=== PATIENT | female | born 1980 | race Two or more races ===

== ENCOUNTER 2025-01-27 17:10 | Emergency (ER) | payer SELFPAY ==
[2025-01-27 17:10] VITALS: BMI 41.5
--- NOTE | 2025-01-27 17:13 | EKG_ITS ---
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
--- NOTE | 2025-01-27 17:27 | XR_ITS ---
Examination: PA lateral chest 2 views TECHNIQUE: Upright PA and lateral chest 2 views Standing time: January 27, 2025 1803 hours INDICATIONS: Chest pain today. FINDINGS: Normal heart size Pectus deformity No lumbar pneumonia or pulmonary edema IMPRESSION: No lobar pneumonia or pulmonary edema
--- NOTE | 2025-01-27 17:27 | PD.EDRME ---
Rapid Medical Screening Exam RME Arrival date/time: 01/27/25 17:10 This is a 44-year-old female that comes into the emergency room with complaints of chest pain. Patient states she is also having dizziness especially when she walks around. Patient states the chest pain starts in her lower chest radiates up her chest and radiates to her back. Patient denies any nausea vomiting. Patient reports history of carpal tunnel surgery and reproductive surgery. I have greeted and performed a focused initial assessment of this patient. Initial appropriate labs ordered at this time. A comprehensive ED assessment and evaluation of the patient and analysis of all test and completion of medical decision making process will be conducted by additional ED provider. Chief Complaint: Chest Pain Time Seen by Provider: 01/27/25 17:15
[2025-01-27 17:34] VITALS: BP 129/88; PULSE 94; RESP 16; TEMP 37; O2SAT 99
[2025-01-27 18:05] LABS: Basophils % (Auto) 0 % (0-2.5); Eosinophils # (Auto) 0.5 Thou/mm3 (0.0-0.5); Eosinophils % (Auto) 7 % (0-10); Hematocrit 40.7 % (36.0-46.0); Hemoglobin 13.8 g/dL (12.0-16.0); Immature Granulocytes % (Auto) 0 % (0-0); Immature Granulocytes Auto 0.02 Thou/mm3 (0.00-0.00); Lymphocytes # (Auto) 1.8 Thou/mm3 (1.0-4.8); Lymphocytes % (Auto) 24 % (10-50); Mean Corpuscular HGB Conc 33.9 g/dl (31.0-37.0); Mean Corpuscular Hemoglobin 26.5 pg (25.0-35.0); Mean Corpuscular Volume 78 fL (80-100); Monocytes # (Auto) 0.6 Thou/mm3 (0.0-0.8); Monocytes % (Auto) 8 % (0-12); Neutrophils # (Auto) 4.5 Thou/mm3 (1.8-7.7); Neutrophils % (Auto) 61 % (37-80); Nucleated Red Blood Cell % 0 /100 WBC (0); Platelet Count 295 Thou/mm3 (140-440); RDW Standard Deviation 42.2 fL (36.4-46.3); Red Blood Count 5.21 Miln/mm3 (4.00-5.20); White Blood Count 7.4 Thou/mm3 (3.6-11.0)
[2025-01-27 18:24] LABS: Alanine Aminotransferase 22 U/L (10-49); Albumin, Serum 4.4 gm/dL (3.5-5.0); Albumin/Globulin Ratio 1.6 (1.2-2.2); Alkaline Phosphatase 64 U/L (46-116); Anion Gap 9 (7-16); Aspartate Amino Transferase 19 U/L (0-34); BUN/Creatinine Ratio 11 Ratio (12-20); Bilirubin,Total 0.6 mg/dL (0.3-1.2); Blood Urea Nitrogen 8 mg/dL (9-23); Calcium 9.3 mg/dL (8.3-10.6); Calcium (Corrected) 9.3 mg/dL (8.5-10.1); Carbon Dioxide 26.3 mMol/L (20.0-31.0); Chloride 108 mMol/L (98-107); Creatinine (Component) 0.7 mg/dL (0.6-1.3); Estimated Creatinine Clearance 113.4 mL/min (>60); Globulin 2.8 gm/dL (2.3-3.5); Glucose 127 mg/dL (74-106); Lipase 35 U/L (12-53); Osmolality,Calculated 285 (275-295); Potassium 3.3 mMol/L (3.4-5.1); Sodium 143 mMol/L (136-145); Total Protein 7.2 gm/dL (5.7-8.2); Troponin I < 0.002 ng/mL (0.0-0.045); eGFR > 60 See Note
[2025-01-27] MEDS: MECLIZINE HCL 25 MG TABLET PO (18:24)
[2025-01-27] MEDS: IBUPROFEN TAB 400 MG TABLET 800 MG PO (18:24)
[2025-01-27 18:37] LABS: Collection Type, Urine Voided; RBC,Urine 0 /hpf (0-3); WBC,Urine 0 /hpf (0-5)
[2025-01-27 18:54] LABS: Bacteria,Urine Rare; Bilirubin,Urine Negative (Negative); Blood,Urine Negative (Negative); Clarity,Urine Clear (Clear/Hazy); Color,Urine Yellow (Lt Yel-Yel); Culture Indicated,Urine Not Indicated; Glucose, Urine Negative (Negative); Ketones,Urine Trace (Negative); Leukocyte Esterase,Urine Negative (Negative); Nitrite,Urine Negative (Negative); Protein,Urine 1+ (Neg - Trace); Specific Gravity,Urine 1.026 (1.001-1.035); Squamous Epithelial Cell,Urine 7 /hpf (0-5); Urobilinogen,Urine Negative mg/dL (0.0-1.0)
--- NOTE | 2025-01-27 19:48 | PD.EDCHEST ---
ED Chest Pain RME/HPI General Chief Complaint: Chest Pain Stated Complaint: RIGHT CHEST & BACK PAIN Time Seen by Provider: 01/27/25 17:15 Arrival date/time: 01/27/25 17:10 RME / HPI RME / HPI narrative: 44-year-old female that comes into the emergency room with complaints of chest pain. Patient states she is also having dizziness especially when she walks around. Patient states the chest pain starts in her lower chest radiates up her chest and radiates to her back. Is been ongoing for the last 2 days. Patient denies any nausea vomiting. Patient reports history of carpal tunnel surgery and reproductive surgery. Related Data Home Medications ?Medication ?Instructions ?Recorded ?Confirmed Multivitamin with Minerals 1 ea PO QDAY #0 tabs 08/24/17 (Multiple Vitamin) Previous Rx's ?Medication ?Instructions ?Recorded Hydrocodone/Acetaminophen * (NORCO 1 tab PO Q4H PRN pain #30 tabs 08/25/17 5/325 *) ibuprofen 800 mg tablet 800 mg PO Q8H PRN pain #30 tabs 01/27/25 pantoprazole 40 mg tablet,delayed 40 mg PO QDAY #20 tabs 01/27/25 release (Protonix) Allergies Allergy/AdvReac Type Severity Reaction Status Date / Time No Known Allergies Allergy Unknown Uncoded 01/27/25 17:13 Review of Systems Review of Systems Narrative Review of Systems: Review of system reviewed and within normal limits except mentioned in HPI ED Exam Narrative Physical exam: VITAL SIGNS: Reviewed. GENERAL APPEARANCE: Alert and interactive, follows commands, no acute distress, HEAD AND FACE: Non-traumatic. ENT: PERRL, pink conjunctivitis, eyelid no trauma, Mucous membrane moist. NECK: Supple, nontender, no nuchal rigidity. CHEST: Anterior chest tenderness, no crepitus, no paradoxical movement, no retractions. LUNGS: Clear, well ventilated, symmetric, no rales, no wheezing, no ronchi, no stridor, good breath sounds bilaterally. HEART: Regular rate, regular rhythm, no murmur, no gallops. ABDOMEN: Soft, positive bowel sounds, nondistended, no guarding, nontender, no rebound, no masses, RECTAL: Deferred. GENITAL: Deferred. NEUROLOGICAL: Gross motor function intact sensory function intact, Appropriate for age. MUSCULOSKELETAL: low back nontender, full range of motion. EXTREMITIES: Nontender, full range of motion. SKIN: Color pink, dry, no rash, no lacerations, no abrasions, no contusions. LYMPHATICS: Deferred. Course Quality Measures none Orders Category Date Time Status EKG (ED ONLY) *Do not use* NOW Care 01/27/25 17:13 Completed EKG (ED Only) Stat Exams 01/27/25 17:13 Draft XR chest 2V Stat Exams 01/27/25 17:27 Completed CBC Stat Lab 01/27/25 17:46 Completed Comprehensive Metabolic Panel Stat Lab 01/27/25 17:46 Completed Lipase Stat Lab 01/27/25 17:46 Completed Troponin I Stat Lab 01/27/25 17:46 Completed Urinalysis, C/S if Indicated Stat Lab 01/27/25 18:25 Completed Ibuprofen Tab [Motrin Tab] Med 01/27/25 18:15 Discontinued 800 mg PO X1 ONE Ketorolac Inj [Toradol Inj] Med 01/27/25 19:45 Discontinued 30 mg IM X1 ONE Meclizine HCl [Antivert] Med 01/27/25 17:27 Discontinued 25 mg PO X1 ONE mg Hyd/Al Hyd/Malik Susp [Maalox Susp] Med 01/27/25 19:45 Discontinued 30 ml PO X1 ONE Vital Signs Vital signs: Vital Signs Temperature 98.6 F 01/27/25 17:34 Pulse Rate 94 01/27/25 17:34 Respiratory Rate 16 01/27/25 17:34 Blood Pressure 129/88 H 01/27/25 17:34 Pulse Oximetry (%) 99 01/27/25 17:34 Oxygen Delivery Method Room Air 01/27/25 17:34 Chest Pain MDM Narrative MDM Narrative:: 44-year-old female that comes into the emergency room with complaints of chest pain. Patient states she is also having dizziness especially when she walks around. Patient states the chest pain starts in her lower chest radiates up her chest and radiates to her back. Is been ongoing for the last 2 days. Patient denies any nausea vomiting. Patient reports history of carpal tunnel surgery and reproductive surgery. Patient's cardiac workup all came back normal including normal troponin chest x-ray also came back unremarkable EKG showed normal sinus rhythm ventricular rate of 95 bpm, no ST segment elevation or depression noted. Results discussed with the patient and family. Patient was given Toradol and Maalox with significant improvement of symptoms. Patient data External records reviewed:: None Clinical information provided by:: patient Social determinants that could affect healthcare access:: none Patient has the following chronic illnesses:: None How is presenting disease/condition affected by chronic disease/condition?: no chronic disease Evaluation data The following diagnostics were reviewed and interpreted by me:: lab results, radiology exam(s) and EKG tracing(s) Lab and/or radiology exams considered but not ordered:: None Interpretation Summary: See results MDM Medications / Prescriptions Medications or Prescriptions considered but not ordered:: None Medication administrations:: Medication Administration History Discontinued Medications Al Hydrox/Mg Hydrox/Simethicone (Mg Hyd/Al Hyd/Malik (Maalox Reg) Susp 30 Ml Udc) 30 ml PO X1 ONE Stop: 01/27/25 19:46 Ibuprofen (Ibuprofen Tab 400 Mg Tablet) 800 mg PO X1 ONE Stop: 01/27/25 18:16 Last Admin: 01/27/25 18:24 Dose: 800 mg Documented By: SYLVESTER Ketorolac Tromethamine (Ketorolac Inj 60 Mg/2 Ml Vial) 30 mg IM X1 ONE Stop: 01/27/25 19:46 Meclizine HCl (Meclizine Hcl 25 Mg Tablet) 25 mg PO X1 ONE Stop: 01/27/25 17:28 Last Admin: 01/27/25 18:24 Dose: 25 mg Documented By: SYLVESTER Meclizine, Toradol Maalox and Motrin Consultations Consultation(s) initiated? (list below): No Diagnosis Chest Pain Differential Diagnosis: pneumothorax and chest pain Most likely diagnosis given after review of the tests above:: GERD causing chest pain Admission Indicated Admission indicated?: not indicated Admission Request Was there a request for admission?: No Disposition Plan Disposition Plan: Discharge Discharge Attestation Discharge Attestation: The patient and all family members were given an opportunity to ask questions and understood the discharge instructions. Discharge instructions specifically effects, indications for sooner follow up or return to the emergency department, and the expected course of current diagnosis. Patient condition: Stable Discharge Plan Plan Patient Disposition: HOME (Self Care) Disposition Comment: Stable Prescriptions/Referrals Prescriptions/Med Rec: New pantoprazole [Protonix] 40 mg tablet,delayed release (DR/EC) 40 mg PO QDAY Qty: 20 0RF ibuprofen 800 mg tablet 800 mg PO Q8H PRN (Reason: pain) Qty: 30 0RF No Action Multivitamin with Minerals (Multiple Vitamin) 1 EACH tablet 1 ea PO QDAY Qty: 0 Hydrocodone/Acetaminophen * (NORCO 5/325 *) 1 TAB tablet 1 tab PO Q4H PRN (Reason: pain) Qty: 30 0RF Referrals: No Primary/Family,Physician [Primary Care Provider] - In 1 week Problem List Clinical Impression: Chest pain due to GERD Patient/Caregiver Discharge Instructions Discharge Activity: activity as tolerated Education Materials: GERD Dc Additional Instructions: Thank you for the opportunity for serving you today. You are stable for discharged . You are advised to: Follow-up with your PCP in 1 to 2 days Return to ED for worsening of symptoms Increase oral fluids Take medication as prescribed Print Language: Citizen Of [place] Stand Alone Forms: Ana Award Info., Patient Portal Info Letter
[2025-01-27] MEDS: MG HYD/AL HYD/SIME (Maalox Reg) SUSP 30 ML UDC PO (20:58)
[2025-01-27] MEDS: KETOROLAC INJ 60 MG/2 ML VIAL 30 MG IM (20:58)
== END 2025-01-27 20:03 | disposition home or self-care (01) ==
PROVIDERS: Nurse Practitioner Family; Emergency Provider Emergency Medicine
DX: K21.9 Gastro-esophageal reflux disease without esophagitis (principal); R07.9 Chest pain, unspecified; R94.31 Abnormal electrocardiogram [ECG] [EKG]
CPT/HCPCS: 36415; 71046; 80053; 81001; 83690; 84484; 85025; 93005; 96372; 99283; J1885; A9270

== ENCOUNTER 2025-01-30 11:00 | Emergency (ER) | payer BC, SELFPAY ==
[2025-01-30] VITALS (8 sets, daily range): BP systolic 100–135; BP diastolic 63–78; PULSE 17–127; RESP 17–19; TEMP 36.7–38.4; O2SAT 96–100; BMI 41.5
--- NOTE | 2025-01-30 | XR_ITS ---
MRI abdomen, without contrast. MRCP Date and time of exam: January 30, 2025 1832 hours INDICATIONS: Elevated total bilirubin today with abdominal pain and nausea Technique: Multiple axial and coronal images of the abdomen have been obtained with the Siemens 1.5T MRI scanner. Images obtained included T1 weighted transverse images, T2-weighted transverse images, T2-weighted transverse images fat-suppressed, T2 weighted haste fat suppressed transverse images, T1 weighted images, in and out of phase images, T2-weighted coronal images, breath hold, T2 weighted haze coronal images as well as T2 weighted coronal thick slab images, MRCP. Findings: Gallbladder wall thickening with edema Common hepatic duct 6 mm common bile duct 4 mm no stones Pancreatic duct is not dilated No peripancreatic edema Minimal perinephric stranding Spleen is not enlarged No bowel obstruction No ascites IMPRESSION: Acute acalculus cholecystitis No common hepatic common bile duct stones
--- NOTE | 2025-01-30 11:15 | EDRME_ITS ---
Rapid Medical Screening Exam RME Arrival date/time: 01/30/25 11:00 44-year-old female presents the emergency department for complaint of right- sided abdominal pain patient noted be febrile and tachycardic Chief Complaint: Abdominal Pain Vital signs: Vital Signs Temperature 100.5 F H 01/30/25 11:07 Pulse Rate 127 H 01/30/25 11:07 Respiratory Rate 18 01/30/25 11:07 Blood Pressure 108/71 01/30/25 11:07 Pulse Oximetry (%) 97 01/30/25 11:07 Oxygen Delivery Method Room Air 01/30/25 11:07
[2025-01-30] MEDS: ACETAMINOPHEN 500 MG TABLET 1000 MG PO (11:30)
--- NOTE | 2025-01-30 11:41 | EDNOTE_ITS ---
ED General RME/HPI General Chief complaint: Abdominal Pain Stated complaint: ABD. PAIN AND NAUSEA Time Seen by Provider: 01/30/25 11:31 Arrival date/time: 01/30/25 11:00 CC: Abdominal pain HPI ongoing for the past 2 days the patient states she was seen here diagnosed with GERD sent home, the patient states she had 1 small bowel movement and felt it gets stuck . Since then she has had an right lower quadrant abdominal pain. Patient also was noted to be febrile and tachycardic upon initial assessment. Patient denies chest pain shortness of breath or difficulty breathing. RME / HPI RME / HPI narrative: 01/30/25 11:00 44-year-old female presents the emergency department for complaint of right- sided abdominal pain patient noted be febrile and tachycardic Related Data Home Medications ?Medication ?Instructions ?Recorded ?Confirmed Multivitamin with Minerals 1 ea PO QDAY #0 tabs (Multiple Vitamin) Previous Rx's ?Medication ?Instructions ?Recorded Hydrocodone/Acetaminophen * (NORCO 1 tab PO Q4H PRN pa in #30 tabs 08/25/17 5/325 *) ibuprofen 800 mg tablet 800 mg PO Q8H PRN pain #30 t abs 01/27/25 pantoprazole 40 mg tablet,delayed 40 mg PO QDAY #20 ta bs 01/27/25 release (Protonix) amoxicillin 875 mg-potassium 1 tab PO BID #14 tabs clavulanate 125 mg tablet meloxicam 7.5 mg tablet 7.5 mg PO QDAY #10 tabs 01/03 06/28 Allergies Allergy/AdvReac Type Severity Reaction Status Date / Time No Known Allergies Allergy Unknown Uncoded 01/30/25 11:04 Review of Systems Review of Systems Narrative Review of Systems: GEN: No fever, no chills, no weight loss EYES: No discharge, no visual changes, no pain HEENT: No ear pain, no congestion, no sore throat PULM: No shortness of breath, no cough, no congestion CV: No chest pain, no dyspnea on exertion, no palpitations GI: No nausea, no vomiting, no diarrhea, + pain, no constipation : No frequency, no urgency, no dysuria MUSC/SKEL: No joint pain, no back pain SKIN: No rash PSYCH: No hallucinations, no depression HEME/LYMPH: No easy bleeding or bruising tendencies NEURO: No weakness, no headache Past Medical History Social History SMOKING STATUS: Never smoker ED Exam Narrative Physical exam: [General: Morbidly obese in mild discomfort but not in any acute distress Head normocephalic HEENT: Eyes pupils are PERRLA EOMs are intact mouth pink dry membranes uvula is midline swallow symmetrical phonation is normal although the subsystems of ATTR within acceptable limits Neck is supple nontender no JVD no edema Chest equal chest rise nontender to palpation Respiratory: Clear to auscultation no wheezes crackles or rubs CV: Rate rhythm is regular tachycardic no murmurs rubs or clicks Abdomen is distended secondary to body habitus soft nontender no masses positive bowel sounds all 4 quadrants Back: No CVA tenderness no spinous process tenderness from cervical spine thoracic and lumbar spine Skin: Intact no petechiae rash induration ulceration or crepitus Extremities: Moving all extremity against resistance cap refill less than 2 seconds neurosensory intact Neuro: Awake alert oriented x3 Glascow coma 15 no focal deficits] Course Course Course Narrative: Patient's case discussed with Dr. Uriarte initially wanted MRCP At 2230, patient's case rediscussed with Dr. Uriarte after the MRCP shows no choledocholithiasis. The patient's recheck laboratory results show that she has a mild increase in her WBCs from 8-11.2. The patient has had no fever no increased pain. Transaminases are unchanged T. bili is unchanged at 1.9. This was all discussed with Dr. Uriarte including that MRCP results. He agrees patient can be discharged home on antibiotics and pain medicine to follow-up in his office. Patient is in agreement with this plan Quality Measures none Orders Category Date Time Status Bedside Influenza A&B Antigen Test NOW Care 01/30/25 11:[address] Screening NOW Care 01/30/25 11:14 Active Insert IV NOW Care 01/30/25 11:14 Active MRI Screening NOW Care 01/30/25 16:[address] abdomen pelvis wo con Stat Exams 01/30/25 13:04 Completed MR MRCP Stat Exams 01/30/25 Completed Blood Culture (Lab) Stat Lab 01/30/25 11:53 Received CBC Stat Lab 01/30/25 11:43 Completed CBC Stat Lab 01/30/25 21:13 Completed CMP [Comprehensive Metabolic Panel] Stat Lab 01/30/25 21:14 Completed Comprehensive Metabolic Panel Stat Lab 01/30/25 11:43 Completed HCG Qualitative,Urine Stat Lab 01/30/25 11:14 Completed Lactic Acid [Lactate (Lactic Acid)] Stat Lab 01/30/25 11:43 Completed Lipase Stat Lab 01/30/25 11:43 Completed Procalcitonin Stat Lab 01/30/25 11:43 Completed UA, C/S IF [Urinalysis, C/S if Indicated] Stat Lab 01/30/25 11:14 Completed Urine Culture Stat Lab 01/30/25 11:14 Received Acetaminophen Tab [Tylenol ES Tab] Med 01/30/25 11:14 Discontinued 1,000 mg PO X1 ONE Morphine Inj Med 01/30/25 15:25 Discontinued 4 mg IVP X1 ONE Ondansetron Inj [Zofran Inj] Med 01/30/25 15:25 Discontinued 4 mg IV X1 ONE Piper/Tazo 3.375 gm Premix [Zosyn] Med 01/30/25 16:03 Discontinued 3.375 gm in 50 ml IV X1 Sodium Chloride 0.9% 1000 ml [Ns] 1,000 ml Med 01/30/25 17:34 Active IV 100 mls/hr Sodium Chloride 0.9% 1000 ml [Ns] 1,000 ml Med 01/30/25 11:14 Discontinued IV 999 mls/hr oxyCODONE/APAP 5/325 [Percocet 5/325] Med 01/30/25 22:20 Once 2 tab PO X1 ONE Vital Signs Vital signs: Vital Signs Temperature 100.5 F H 01/30/25 11:07 Pulse Rate 127 H 01/30/25 11:07 Respiratory Rate 18 01/30/25 11:07 Blood Pressure 108/71 01/30/25 11:07 Pulse Oximetry (%) 97 01/30/25 11:07 Oxygen Delivery Method Room Air 01/30/25 11:07 Discharge Plan Plan Patient Disposition: HOME (Self Care) Patient condition on transfer: Stable Prescriptions/Referrals Prescriptions/Med Rec: New amoxicillin-pot clavulanate 875-125 mg tablet 1 tab PO BID Qty: 14 0RF meloxicam 7.5 mg tablet 7.5 mg PO QDAY Qty: 10 0RF No Action Multivitamin with Minerals (Multiple Vitamin) 1 EACH tablet 1 ea PO QDAY Qty: 0 Hydrocodone/Acetaminophen * (NORCO 5/325 *) 1 TAB tablet 1 tab PO Q4H PRN (Reason: pain) Qty: 30 0RF pantoprazole [Protonix] 40 mg tablet,delayed release (DR/EC) 40 mg PO QDAY Qty: 20 0RF ibuprofen 800 mg tablet 800 mg PO Q8H PRN (Reason: pain) Qty: 30 0RF Referrals: Matthieu Uriarte MD [Physician] - In 1 week No Primary/Family,Physician [Primary Care Provider] - In 1 week Problem List Clinical Impression: Acalculous cholecystitis Patient/Caregiver Discharge Instructions Other Activity Instructions:: Take the medications as prescribed, stick to a bland diet follow-up with the surgeon listed above call his office tomorrow for an appointment. If there is a worsening of symptoms in spite of the medications return the emergency room immediately for further evaluation. Education Materials: ED Diet, [place] (Adult), ED Cholecystitis, Confirmed Print Language: Kyr[place] Stand Alone Forms: Ana Award Info., Patient Portal Info Letter, Work/School Release PA/[employer] RESIDENT Supervising Physician PA/[employer] AND MAXILLOFACIAL SURGERY RESIDENT Supervising Physician: Taj Evans ENJorgito MDM Patient Acuity High Acuity (complete MDM) Clinical Information Provided by: patient Medical Records reviewed [facility] Meds/Rx considered, not ordered None Labs/Rad/Tests considered, not ordered None Medication Administration(s) Medication Administration History Sodium Chloride (Ns) 1,000 mls @ 100 mls/hr IV .Q10H MARCELLUS Stop: 03/01/25 17:33 Last Admin: 01/30/25 19:25 Dose: 100 mls/hr Documented By: SF Discontinued Medications Acetaminophen (Acetaminophen 500 Mg Tablet) 1,000 mg PO X1 ONE Stop: 01/30/25 11:15 Last Admin: 01/30/25 11:30 Dose: 1,000 mg Documented By: KIMBERLY Sodium Chloride (Ns) 1,000 mls @ 999 mls/hr IV .Q1H1M ONE Stop: 01/30/25 12:14 Last Infusion: 01/30/25 12:58 Dose: Infused Documented By: Admin: 01/30/25 11:56 Dose: 999 mls/hr Documented By: KIMBERLY Piperacillin/Tazobactam/Dextrose (Zosyn) 3.375 gm in 50 mls @ 100 mls/hr IV X1 ONE Stop: 01/30/25 16:32 Last Infusion: 01/30/25 17:05 Dose: Infused Documented By: Admin: 01/30/25 16:30 Dose: 100 mls/hr Documented By: SANDEE Morphine Sulfate (Morphine Sulf Inj 10 Mg/Ml Vial) 4 mg IVP X1 ONE Stop: 01/30/25 15:26 Last Admin: 01/30/25 15:40 Dose: 4 mg Documented By: KIMBERLY Ondansetron HCl (Ondansetron Inj 2 Mg/Ml Inj 2 Ml) 4 mg IV X1 ONE; Protocol Stop: 01/30/25 15:26 Last Admin: 01/30/25 15:40 Dose: 4 mg Documented By: KIMBERLY
[2025-01-30] MEDS: SODIUM CHLORIDE 0.9% 1000 ML 1,000 ML 999 ML IV (11:56)
[2025-01-30 12:02] LABS: Lactate (Lactic Acid) 1.5 mMol/L (0.4-2.0)
[2025-01-30 12:06] LABS: Basophils % (Auto) 0 % (0-2.5); Eosinophils % (Auto) 0 % (0-10); Hematocrit 37.3 % (36.0-46.0); Hemoglobin 12.8 g/dL (12.0-16.0); Immature Granulocytes % (Auto) 0 % (0-0); Immature Granulocytes Auto 0.03 Thou/mm3 (0.00-0.00); Lymphocytes # (Auto) 0.5 Thou/mm3 (1.0-4.8); Lymphocytes % (Auto) 6 % (10-50); Mean Corpuscular HGB Conc 34.3 g/dl (31.0-37.0); Mean Corpuscular Hemoglobin 26.6 pg (25.0-35.0); Mean Corpuscular Volume 78 fL (80-100); Monocytes # (Auto) 0.2 Thou/mm3 (0.0-0.8); Monocytes % (Auto) 2 % (0-12); Neutrophils # (Auto) 7.5 Thou/mm3 (1.8-7.7); Neutrophils % (Auto) 92 % (37-80); Nucleated Red Blood Cell % 0 /100 WBC (0); Platelet Count 258 Thou/mm3 (140-440); RDW Standard Deviation 40.9 fL (36.4-46.3); Red Blood Count 4.81 Miln/mm3 (4.00-5.20); White Blood Count 8.2 Thou/mm3 (3.6-11.0)
[2025-01-30 12:40] LABS: Alanine Aminotransferase 26 U/L (10-49); Albumin, Serum 4.4 gm/dL (3.5-5.0); Albumin/Globulin Ratio 1.6 (1.2-2.2); Alkaline Phosphatase 108 U/L (46-116); Anion Gap 11 (7-16); Aspartate Amino Transferase 23 U/L (0-34); BUN/Creatinine Ratio 13 Ratio (12-20); Bilirubin,Total 1.9 mg/dL (0.3-1.2); Blood Urea Nitrogen 10 mg/dL (9-23); Carbon Dioxide 23.9 mMol/L (20.0-31.0); Chloride 101 mMol/L (98-107); Creatinine (Component) 0.8 mg/dL (0.6-1.3); Estimated Creatinine Clearance 99.2 mL/min (>60); Globulin 2.8 gm/dL (2.3-3.5); Glucose 112 mg/dL (74-106); Lipase 25 U/L (12-53); Osmolality,Calculated 271 (275-295); Potassium 3.2 mMol/L (3.4-5.1); Sodium 136 mMol/L (136-145); Total Protein 7.2 gm/dL (5.7-8.2); eGFR > 60 See Note
[2025-01-30 13:01] LABS: Procalcitonin 0.39 ng/ml (0.0-0.49)
--- NOTE | 2025-01-30 13:04 | XR_ITS ---
Examination: CT abdomen and pelvis without contrast. Coronal 3-D reconstructions. Sagittal 2-D reconstructions. Date and time of exam:January 30, 2025 1541 hours INDICATIONS: Lower abdominal pain and fever onset today CTDI: vol (mGy): 15.2 DLP: (mGycm): 904 Technique: Axial images of the abdomen have been obtained, 3 mm slice thickness Intravenous contrast material has not been administered. Low dose protocols were performed. One or more of the following dose reduction techniques were used; automated exposure control, adjustment of the mA and/or KV according to patient size, use of iterative reconstruction technique. Findings: Atelectasis in the lower lung zones Liver is mildly irregular in contour Abnormal gallbladder, marked wall thickening pericholecystic inflammatory change and hyperdensity in the gallbladder Spleen is not enlarged No pancreatic mass Renal or ureteral calculi Aorta normal size Normal appendix No bowel obstruction Mildly enlarged fundus of uterus Urinary bladder intact IMPRESSION: Acute cholecystitis, recommend hepatobiliary sonography follow-up
[2025-01-30 13:42] LABS: Bilirubin,Urine Negative (Negative); Blood,Urine Negative (Negative); Collection Type, Urine Clean Catch; Color,Urine Yellow (Lt Yel-Yel); Glucose, Urine Negative (Negative); HCG Qualitative,Urine Negative; Hyaline Casts,Urine < 1 /hpf (0-1); Ketones,Urine 2+ (Negative); Leukocyte Esterase,Urine Positive (Negative); Nitrite,Urine Negative (Negative); Protein,Urine Trace (Neg - Trace); RBC,Urine 0 /hpf (0-3); Specific Gravity,Urine 1.014 (1.001-1.035); Squamous Epithelial Cell,Urine 0 /hpf (0-5); Urobilinogen,Urine Negative mg/dL (0.0-1.0); WBC,Urine 0 /hpf (0-5)
[2025-01-30 13:44] LABS: Clarity,Urine Hazy (Clear/Hazy); Culture Indicated,Urine Yes
[2025-01-30] MEDS: MORPHINE SULF INJ 10 MG/ML VIAL 4 MG IVP (15:40)
[2025-01-30] MEDS: ONDANSETRON INJ 2 MG/ML INJ 2 ML 4 MG IV (15:40)
[2025-01-30] MEDS: PIPER/TAZO 3.375 GM PREMIX 3.375 GM/50 ML BAG IV (16:30)
[2025-01-30] MEDS: SODIUM CHLORIDE 0.9% 1000 ML 1,000 ML 100 ML IV (19:25)
[2025-01-30 21:33] LABS: Basophils % (Auto) 0 % (0-2.5); Eosinophils # (Auto) 0.1 Thou/mm3 (0.0-0.5); Eosinophils % (Auto) 1 % (0-10); Hematocrit 33.9 % (36.0-46.0); Hemoglobin 11.5 g/dL (12.0-16.0); Immature Granulocytes % (Auto) 0 % (0-0); Immature Granulocytes Auto 0.04 Thou/mm3 (0.00-0.00); Lymphocytes # (Auto) 1.1 Thou/mm3 (1.0-4.8); Lymphocytes % (Auto) 9 % (10-50); Mean Corpuscular HGB Conc 33.9 g/dl (31.0-37.0); Mean Corpuscular Hemoglobin 26.6 pg (25.0-35.0); Mean Corpuscular Volume 78 fL (80-100); Monocytes # (Auto) 1.2 Thou/mm3 (0.0-0.8); Monocytes % (Auto) 10 % (0-12); Neutrophils # (Auto) 9.1 Thou/mm3 (1.8-7.7); Neutrophils % (Auto) 79 % (37-80); Nucleated Red Blood Cell % 0 /100 WBC (0); Platelet Count 238 Thou/mm3 (140-440); RDW Standard Deviation 41.5 fL (36.4-46.3); Red Blood Count 4.33 Miln/mm3 (4.00-5.20); White Blood Count 11.5 Thou/mm3 (3.6-11.0)
[2025-01-30 21:48] LABS: Alanine Aminotransferase 30 U/L (10-49); Albumin, Serum 3.8 gm/dL (3.5-5.0); Albumin/Globulin Ratio 1.5 (1.2-2.2); Alkaline Phosphatase 109 U/L (46-116); Anion Gap 8 (7-16); Aspartate Amino Transferase 35 U/L (0-34); BUN/Creatinine Ratio 10 Ratio (12-20); Bilirubin,Total 1.9 mg/dL (0.3-1.2); Blood Urea Nitrogen 7 mg/dL (9-23); Calcium 7.9 mg/dL (8.3-10.6); Calcium (Corrected) 8.1 mg/dL (8.5-10.1); Chloride 102 mMol/L (98-107); Creatinine (Component) 0.7 mg/dL (0.6-1.3); Estimated Creatinine Clearance 113.4 mL/min (>60); Globulin 2.6 gm/dL (2.3-3.5); Glucose 87 mg/dL (74-106); Osmolality,Calculated 265 (275-295); Potassium 3.6 mMol/L (3.4-5.1); Sodium 134 mMol/L (136-145); Total Protein 6.4 gm/dL (5.7-8.2); eGFR > 60 See Note
[2025-01-30] MEDS: oxyCODONE/APAP 5/325 TABLET 2 TAB PO (22:37)
== END 2025-01-30 22:43 | disposition home or self-care (01) ==
PROVIDERS: Nurse Practitioner Primary Care; Registered Nurse General Practice; Emergency Provider Emergency Medicine
DX: K81.9 Cholecystitis, unspecified (principal); K21.9 Gastro-esophageal reflux disease without esophagitis
CPT/HCPCS: 36415; 74176; 80053; 81001; 81025; 83605; 83690; 84145; 85025; 87040; 87086; 87400; 96361; 96365; 99284; J2270; J2405; J2543; J7030; S8037; 74181; A9270

== ENCOUNTER 2025-02-02 14:41 | Inpatient (IN) | payer BC, SELFPAY ==
[2025-02-02] VITALS (7 sets, daily range): BP systolic 96–114; BP diastolic 65–79; PULSE 78–130; RESP 16–20; TEMP 36.8–38.1; O2SAT 95–99; BMI 35.2; BMI 41.5
--- NOTE | 2025-02-02 15:03 | XR_ITS ---
Examination: Abdomen sonogram, Limited Date and time of exam: February 02, 2025 1548 hours INDICATIONS: Abdominal pain and nausea Technique: Real-time samuels scale transabdominal sonographic images of the upper abdomen obtained. Findings: Cholelithiasis Gallbladder wall 0.8 cm with edema Common bile duct 0.6 cm Pancreatic head 2.2 cm Liver 18.4 cm fatty infiltration no focal liver lesions Normal hepatopedal portal venous flow Patent IVC IMPRESSION: Acute calculus cholecystitis, consider HIDA scan or MRCP follow-up
--- NOTE | 2025-02-02 15:04 | PD.EDRME ---
Rapid Medical Screening Exam RME Arrival date/time: 02/02/25 14:41 44-year-old female with a history of gallstones presents to the emergency room with a chief complaint of 10 out of 10 right upper quadrant abdominal pain and tenderness, fevers, weakness and vomiting x 2 days I have greeted and performed a focused initial assessment of this patient. A comprehensive ED assessment and evaluation of the patient, analysis of all test results, and completion of the medical decision making process will be conducted by additional ED providers. Chief Complaint: Abdominal Pain Time Seen by Provider: 02/02/25 14:48 Vital signs: Vital Signs Temperature 100.6 F H 02/02/25 14:54 Pulse Rate 122 H 02/02/25 14:54 Respiratory Rate 18 02/02/25 14:54 Blood Pressure 114/79 02/02/25 14:54 Pulse Oximetry (%) 99 02/02/25 14:54 Oxygen Delivery Method Room Air 02/02/25 14:54 Vital signs reviewed by provider: Yes
[2025-02-02] MEDS: HYDROcodone/APAP 5/325 TABLET 1 TAB PO (15:07)
[2025-02-02] MEDS: ONDANSETRON ODT 4 MG TABRAP PO (15:08)
[2025-02-02] MEDS: IBUPROFEN TAB 600 MG TABLET PO (15:15)
[2025-02-02 15:30] LABS: Lactate (Lactic Acid) 1.2 mMol/L (0.4-2.0)
[2025-02-02 15:33] LABS: Basophils % (Auto) 0 % (0-2.5); Eosinophils # (Auto) 0.1 Thou/mm3 (0.0-0.5); Eosinophils % (Auto) 1 % (0-10); Immature Granulocytes % (Auto) 0 % (0-0); Immature Granulocytes Auto 0.06 Thou/mm3 (0.00-0.00); Lymphocytes # (Auto) 1.6 Thou/mm3 (1.0-4.8); Lymphocytes % (Auto) 11 % (10-50); Mean Corpuscular HGB Conc 35.3 g/dl (31.0-37.0); Mean Corpuscular Hemoglobin 26.4 pg (25.0-35.0); Mean Corpuscular Volume 75 fL (80-100); Monocytes # (Auto) 1.7 Thou/mm3 (0.0-0.8); Monocytes % (Auto) 12 % (0-12); Neutrophils # (Auto) 10.5 Thou/mm3 (1.8-7.7); Neutrophils % (Auto) 76 % (37-80); Nucleated Red Blood Cell % 0 /100 WBC (0); Platelet Count 358 Thou/mm3 (140-440); RDW Standard Deviation 39.2 fL (36.4-46.3); Red Blood Count 4.54 Miln/mm3 (4.00-5.20); White Blood Count 13.9 Thou/mm3 (3.6-11.0)
[2025-02-02 15:52] LABS: Collection Type, Urine Clean Catch
[2025-02-02 15:57] LABS: HCG Qualitative,Urine Negative
[2025-02-02 15:59] LABS: Alanine Aminotransferase 23 U/L (10-49); Albumin/Globulin Ratio 1.4 (1.2-2.2); Alkaline Phosphatase 195 U/L (46-116); Anion Gap 12 (7-16); Aspartate Amino Transferase 17 U/L (0-34); BUN/Creatinine Ratio 14 Ratio (12-20); Bilirubin,Total 0.9 mg/dL (0.3-1.2); Blood Urea Nitrogen 10 mg/dL (9-23); Calcium 8.3 mg/dL (8.3-10.6); Calcium (Corrected) 8.3 mg/dL (8.5-10.1); Carbon Dioxide 25.5 mMol/L (20.0-31.0); Chloride 99 mMol/L (98-107); Creatinine (Component) 0.7 mg/dL (0.6-1.3); Estimated Creatinine Clearance 120.1 mL/min (>60); Globulin 2.9 gm/dL (2.3-3.5); Glucose 98 mg/dL (74-106); Lipase 30 U/L (12-53); Osmolality,Calculated 270 (275-295); Potassium 3.2 mMol/L (3.4-5.1); Procalcitonin 2.46 ng/ml (0.0-0.49); Sodium 136 mMol/L (136-145); Total Protein 6.9 gm/dL (5.7-8.2); eGFR > 60 See Note
[2025-02-02 16:00] LABS: Bacteria,Urine 1+; Bilirubin,Urine 1+ (Negative); Blood,Urine 3+ (Negative); Color,Urine Orange (Lt Yel-Yel); Glucose, Urine Negative (Negative); Ketones,Urine 4+ (Negative); Leukocyte Esterase,Urine Positive (Negative); Nitrite,Urine Negative (Negative); Protein,Urine 1+ (Neg - Trace); RBC,Urine 2748 /hpf (0-3); Specific Gravity,Urine 1.025 (1.001-1.035); Squamous Epithelial Cell,Urine 3 /hpf (0-5); WBC,Urine 255 /hpf (0-5)
[2025-02-02 16:02] LABS: Clarity,Urine Cloudy (Clear/Hazy)
--- NOTE | 2025-02-02 16:33 | PD.EDABDPN ---
ED Abdominal Pain RME/HPI General Chief Complaint: Abdominal Pain Stated complaint: GALLSTONE PAIN, DIZZINESS Time seen by provider: 02/02/25 14:48 Arrival date/time: 02/02/25 14:41 Limitations: no limitations RME / HPI RME / HPI narrative: 02/02/25 14:41 44-year-old female with a history of gallstones presents to the emergency room with a chief complaint of 10 out of 10 right upper quadrant abdominal pain and tenderness, fevers, weakness and vomiting x 2 days I have greeted and performed a focused initial assessment of this patient. A comprehensive ED assessment and evaluation of the patient, analysis of all test results, and completion of the medical decision making process will be conducted by additional ED providers. DR. TENA MAIN ED EVALUATION: 44 year old female presents to the ED for persistent abdominal pain and fever. She was evaluated here three days ago, where an MRCP and CT confirmed a diagnosis of acalculous cholecystitis. She was discharged home with oral antibiotics. Despite treatment, she reports ongoing abdominal pain and fevers with no improvement. Accompanied by nausea and vomiting. She denies any modifying factors. She has no additional complaints. Related Data Home Medications ?Medication ?Instructions ?Recorded ?Confirmed Multivitamin with Minerals 1 ea PO QDAY #0 tabs 08/24/17 (Multiple Vitamin) Previous Rx's ?Medication ?Instructions ?Recorded Hydrocodone/Acetaminophen * (NORCO 1 tab PO Q4H PRN pain #30 tabs 08/25/17 5/325 *) ibuprofen 800 mg tablet 800 mg PO Q8H PRN pain #30 tabs 01/27/25 pantoprazole 40 mg tablet,delayed 40 mg PO QDAY #20 tabs 01/27/25 release (Protonix) amoxicillin 875 mg-potassium 1 tab PO BID #14 tabs 01/30/25 clavulanate 125 mg tablet meloxicam 7.5 mg tablet 7.5 mg PO QDAY #10 tabs 01/30/25 Allergies Allergy/AdvReac Type Severity Reaction Status Date / Time No Known Allergies Allergy Unknown Uncoded 02/02/25 14:43 Review of Systems Review of Systems Systems Reviewed: All systems reviewed, normal except as documented Past Medical History Past Medical History CARDIAC: Positive Coronary Artery Disease; Negative Cardiac Disorders or Congestive Heart Failure RESPIRATORY: Negative Chronic Obstructive Pulmonary Disease (COPD) or Asthma GENITOURINARY: Negative Renal Disease ENDOCRINE: Negative Diabetes Mellitus Type 1 or Diabetes Mellitus Type 2 HEMATOLOGIC: Negative Sickle Cell Disease Surgical History SURGICAL: Positive Open Heart Surgery (X1), Coronary Artery Bypass Graft (X1) and Coronary Stent (X6) Social History SMOKING STATUS: Never smoker ED Exam General Limitations: Present no limitations General appearance: Present alert and in no apparent distress Head Head exam: Present atraumatic, normocephalic and normal inspection Eye Eye exam: Present normal appearance, PERRL and EOMI ENT ENT exam: Present normal exam, normal oropharynx and mucous membranes moist Neck Neck exam: Present normal inspection, full ROM and trachea midline Chest Chest inspection: Present normal inspection and symmetric chest wall rise Respiratory Respiratory exam: Present normal lung sounds bilaterally Cardiovascular Cardiovascular exam: Present regular rate, normal rhythm and normal heart sounds Abdominal Exam Abdominal exam: Present soft, tenderness (mild right upper quadrant tenderness ) and normal bowel sounds Extremities Exam Extremities exam: Present normal inspection and full ROM Back Exam Back exam: Present normal inspection and full ROM Neurological Exam Neurological exam: Present alert, oriented X3 and CN II-XII intact Psychiatric Psychiatric exam: Present normal affect and normal mood Skin Skin exam: Present warm, dry, intact and normal color Course Quality Measures none Orders Category Date Time Status IV [Insert IV] NOW Care 02/02/25 16:30 Active US gall bladder Stat Exams 02/02/25 15:03 Completed Blood Culture (Lab) Stat Lab 02/02/25 15:10 Received CBC Stat Lab 02/02/25 15:17 Completed CMP [Comprehensive Metabolic Panel] Stat Lab 02/02/25 15:17 Completed HCG Qualitative,Urine Stat Lab 02/02/25 15:42 Completed Lactate (Lactic Acid) Stat Lab 02/02/25 15:17 Completed Lipase Stat Lab 02/02/25 15:17 Completed Procalcitonin Stat Lab 02/02/25 15:17 Completed UA [Urinalysis] Stat Lab 02/02/25 15:42 Completed Urine Culture Stat Lab 02/02/25 15:42 Received HYDROcodone*/APAP 5/325 [Fowler 5/325] Med 02/02/25 15:03 Discontinued 1 tab PO X1 ONE HYDROmorphone INJ [Dilaudid Inj] Med 02/02/25 16:30 Discontinued 1 mg IVP X1 ONE Ibuprofen Tab [Motrin Tab] Med 02/02/25 15:08 Discontinued 600 mg PO X1 ONE Ondansetron Inj [Zofran Inj] Med 02/02/25 16:30 Discontinued 4 mg IV X1 ONE Ondansetron Odt [Zofran Odt] Med 02/02/25 15:03 Discontinued 4 mg PO X1 ONE Piper/Tazo 3.375 gm Premix [Zosyn] Med 02/02/25 16:31 Discontinued 3.375 gm in 50 ml IV X1 Sodium Chloride 0.9% 1000 ml [Ns] 1,000 ml Med 02/02/25 16:31 Active IV 125 mls/hr Vital Signs Vital signs: Vital Signs Temperature 100.6 F H 02/02/25 14:54 Pulse Rate 122 H 02/02/25 14:54 Respiratory Rate 18 02/02/25 14:54 Blood Pressure 114/79 02/02/25 14:54 Pulse Oximetry (%) 99 02/02/25 14:54 Oxygen Delivery Method Room Air 02/02/25 14:54 Pulse ox is 99% on room air which is adequate. Abdominal Pain MDM MDM Narrative MDM Narrative:: Wendi Alberto am scribing for and in the presence of Dr. Tena. Patient data External records reviewed:: [facility] previous records (I reviewed ED Visit on 01/30/2025, I reviewed MRCP and CT ) Clinical information provided by:: patient Social determinants that could affect healthcare access:: none Patient has the following chronic illnesses:: CAD, recent dx with cholecystitis How is presenting disease/condition affected by chronic disease/condition?: exacerbated by Evaluation data The following diagnostics were reviewed and interpreted by me:: lab results and radiology exam(s) Lab and/or radiology exams considered but not ordered:: None Interpretation Summary: Ordering Physician: Huey Dominguez Date of Service: 02/02/25 Procedure(s): US gall bladder Accession Number(s): [id number] cc: Huey Dominguez; Farshad Resendez MD; NO PRIMARY/FAMILY,PHYSICIAN~ Examination: Abdomen sonogram, Limited Date and time of exam: February 02, 2025 1548 hours INDICATIONS: Abdominal pain and nausea Technique: Real-time samuels scale transabdominal sonographic images of the upper abdomen obtained. Findings: Cholelithiasis Gallbladder wall 0.8 cm with edema Common bile duct 0.6 cm Pancreatic head 2.2 cm Liver 18.4 cm fatty infiltration no focal liver lesions Normal hepatopedal portal venous flow Patent IVC IMPRESSION: Acute calculus cholecystitis, consider HIDA scan or MRCP follow-up Dictated By: Farshad Resendez MD Signed By: <Electronically signed by Farshad Resendez MD in OV> 02/02/25 6819 Medications / Prescriptions Medications or Prescriptions considered but not ordered:: None Medication administrations:: Medication Administration History Sodium Chloride (Ns) 1,000 mls @ 125 mls/hr IV .Q8H MARCELLUS Stop: 03/04/25 16:30 Last Admin: 02/02/25 17:00 Dose: 125 mls/hr Documented By: KORY Discontinued Medications Hydrocodone Bitart/Acetaminophen (Hydrocodone/Apap 5/325 Tablet) 1 tab PO X1 ONE Stop: 02/02/25 15:04 Last Admin: 02/02/25 15:07 Dose: 1 tab Documented By: Hydromorphone HCl (Hydromorphone Inj 2 Mg/Ml Vial) 1 mg IVP X1 ONE Stop: 02/02/25 16:31 Last Admin: 02/02/25 17:00 Dose: 1 mg Documented By: KORY Piperacillin/Tazobactam/Dextrose (Zosyn) 3.375 gm in 50 mls @ 100 mls/hr IV X1 ONE Stop: 02/02/25 17:00 Last Infusion: 02/02/25 17:35 Dose: Infused Documented By: Admin: 02/02/25 17:02 Dose: 100 mls/hr Documented By: KORY Ibuprofen (Ibuprofen Tab 600 Mg Tablet) 600 mg PO X1 ONE Stop: 02/02/25 15:09 Last Admin: 02/02/25 15:15 Dose: 600 mg Documented By: Ondansetron HCl (Ondansetron Odt 4 Mg Tabrap) 4 mg PO X1 ONE; Protocol Stop: 02/02/25 15:04 Last Admin: 02/02/25 15:08 Dose: 4 mg Documented By: Ondansetron HCl (Ondansetron Inj 2 Mg/Ml Inj 2 Ml) 4 mg IV X1 ONE; Protocol Stop: 02/02/25 16:31 Last Admin: 02/02/25 16:58 Dose: 4 mg Documented By: FC See above Consultations Consultation(s) initiated? (list below): Yes Consultation #1 (Physician, Specialty, Details): I spoke with surgeon Dr. Uriarte. Discussed patients PMHx, HPI, ED course, exam findings, labs, and radiology results. Advised keeping the patient NPO and admit to hospitalist team. Time: 16:28 Consultation #2 (Physician, Specialty, Details): I spoke with hospitalist Dr. Santillan regarding admission. Discussed patients PMHx, HPI, ED course, exam findings, labs, and radiology results. The hospitalist agree to accept the patient for admission. Time: 16:33 Diagnosis Differential diagnosis abdominal pain: abdominal pain, calculus of kidney, diverticulitis, gastroenteritis, pancreatitis and other (cholelithiasis, cholecystitis ) Most likely diagnosis given after review of the tests above:: Calculous cholecystitis Admission Indicated Admission indicated?: indicated Admission Request Was there a request for admission?: Yes Admission Attestation Admission request attestation: Discussed case with [] from Hospitalist service regarding admission. Discussed patients ED course, exam findings, labs, and radiology results. The Hospitalist [agrees,declines] to accept the patient for admission. Disposition Plan Disposition Plan: Admit Discharge Plan Plan Patient Disposition: Admit Acute Care w/in Hospital Prescriptions/Referrals Prescriptions/Med Rec: No Action Multivitamin with Minerals (Multiple Vitamin) 1 EACH tablet 1 ea PO QDAY Qty: 0 Hydrocodone/Acetaminophen * (NORCO 5/325 *) 1 TAB tablet 1 tab PO Q4H PRN (Reason: pain) Qty: 30 0RF pantoprazole [Protonix] 40 mg tablet,delayed release (DR/EC) 40 mg PO QDAY Qty: 20 0RF ibuprofen 800 mg tablet 800 mg PO Q8H PRN (Reason: pain) Qty: 30 0RF amoxicillin-pot clavulanate 875-125 mg tablet 1 tab PO BID Qty: 14 0RF meloxicam 7.5 mg tablet 7.5 mg PO QDAY Qty: 10 0RF Referrals: No Primary/Family,Physician [Primary Care Provider] - In 1 week Problem List Clinical Impression: Acute calculous cholecystitis Patient/Caregiver Discharge Instructions Print Language: Bermudian Stand Alone Forms: Ana Award Info., Patient Portal Info Letter
[2025-02-02] MEDS: ONDANSETRON INJ 2 MG/ML INJ 2 ML 4 MG IV (16:58)
[2025-02-02] MEDS: SODIUM CHLORIDE 0.9% 1000 ML 1,000 ML 125 ML IV (17:00)
[2025-02-02] MEDS: HYDROmorphone INJ 2 MG/ML VIAL 1 MG IVP (17:00)
[2025-02-02] MEDS: PIPER/TAZO 3.375 GM PREMIX 3.375 GM/50 ML BAG IV ×2 (17:02→23:40)
--- NOTE | 2025-02-02 18:01 | ESHP_ITS ---
Documentation for date of: 02/02/25 HPI History of Present Illness Chief complaint: persistent RUQ pain History of present illness: Patient is a 44 y.o female with no past medical history who presented to the ED with persistent RUQ pain since last Wednesday. Patient states that she initially had epigastric pain that worsened with deep breathing and later the pain migrated to her right upper abdomen. Associated symptoms include intractable n/v and lack of appetite as well. Patient presented to the ED two times prior to this current ER visit. During her previous ER visits, patient was diagnosed with GERD and later acalulous cholecystitis, and sent home both times with pain medications and oral antibiotics. However, patient couldn't withstand the symptoms and constant pain, and presented again to the ED today. Patient denies any chest pain, headache, postprandial pain, fever, or chills. Last BM was last week as well. ER course: Patient presented with tachycardia and low grade fever of 100.6, otherwise vital signs hemodynamically stable. Labs significant for leukocytosis, microcytic anemia, hypokalemia, elevated Alk Phos of 195, and elevated Pro-jadiel of 2.46. UA shows positive for UTI and hematuria, but patient denies any UTI- like symptoms. Abdomen CT showed acute cholecystitis on 01/30 and MRCP showed acute acalculous cholecystitis. Gallbladder US today showed acute calculus cholecystitis. Patient will be admitted to med/surg for further management of acute calculus cholecystitis. Review of Systems Review of Systems Systems Reviewed: All systems reviewed, normal except as documented Past Medical History Past Medical History Comments PMH COMMENT: PMHx: none PSHx: carpal tunnel release on right hand and tubal ligation in 2017 FHx: Non-contributory SHx: Occaisional EtOH consumption of 2 beers weekly, smoked briefly on the weekends for 1 year as a teenager Meds: None other than recent use of Advil and Tylenol for pain and Augmentin for cholecystitis Allergies: NKDA Exam Vital Signs Temp Pulse Resp BP Pulse Ox O2 Del Method 99.2 F 109 H 20 102/77 97 Room Air 02/02/25 16:25 02/02/25 17:04 02/02/25 17:04 02/02/25 17:04 02/02/25 17:04 02/02/25 17:04 Narrative Exam General Appearance: Pt in mild acute distress laying in bed. HEENT: NC/AT, no scleral icterus, no conjunctival pallor, MMM Lungs: CTAB, no wheezes or crackles appreciated CVS: RRR, S1/S2 heard, no murmurs or rubs appreciated ABD: Soft, obese, RUQ tender to palpation, non-distended, BS + EXT: no deformity/edema/lesions/cyanosis/clubbing, radial pulses 2+ BL, DP pulses 2 + BL SKIN: Skin exam normal without any rashes. Neuro: A&O x 3. No gross neurological deficits. Motor and sensory grossly intact in B/L UL and LL. Psych: Appropriate mood and affect Results: Labs 02/03/25 04:37 02/03/25 04:37 Labs: Short CBC 02/02/25 Range/Units 15:17 WBC 13.9 H (3.6-11.0) Thou/mm3 Hgb 12.0 (12.0-16.0) g/dL Hct 34.0 L (36.0-46.0) % Plt Count 358 D (140-440) Thou/mm3 BMP 02/02/25 15:17 Sodium 136 Potassium 3.2 L Chloride 99 Carbon Dioxide 25.5 BUN 10 Creatinine 0.7 Glucose 98 Calcium 8.3 Liver Function 02/02/25 Range/Units 15:17 Total Bilirubin 0.9 D (0.3-1.2) mg/dL AST 17 (0-34) U/L ALT 23 (10-49) U/L Alkaline Phosphatase 195 H D (46-116) U/L Albumin 4.0 (3.5-5.0) gm/dL Urine 02/02/25 Range/Units 15:42 Urine Color [place] A (Lt Yel-Yel) Urine Clarity Cloudy A (Clear/Hazy) Urine pH 6.0 (5.0-7.0) Ur Specific [place] 1.025 (1.001-1.035) Urine Protein 1+ A (Neg - Trace) Urine Glucose (UA) Negative (Negative) Quality Measures Quality Measures none Medications Home Medications and Allergies Home Medications ?Medication ?Instructions ?Recorded ?Confirmed ?Type Multivitamin with Minerals 1 ea PO QDAY #0 tabs History (Multiple Vitamin) Allergies Allergy/AdvReac Type Severity Reaction Status Date / Time No Known Allergies Allergy Unknown Uncoded 02/02/25 14:43 Visit Medications Acetaminophen (Acetaminophen 325 Mg Tablet) 650 mg PO Q6H PRN PRN Reason: Fever >100.4 or Pain 1-3 Stop: 03/04/25 17:47 Hydrocodone Bitart/Acetaminophen (Hydrocodone/Apap 5/325 Tablet) 1 tab PO Q6HR PRN PRN Reason: PAIN SCALE 4-6 (Moderate Stop: 02/07/25 17:47 Heparin Sodium (Porcine) (Heparin Sod Inj 5000 Unit/Ml Vial) 5,000 unit SC Q12HR MARCELLUS Stop: 02/16/25 20:59 Hydromorphone HCl (Hydromorphone Inj 2 Mg/Ml Vial) 1 mg IVP Q4H PRN PRN Reason: Pain 7-10 Stop: 02/07/25 17:47 Sodium Chloride (Ns) 1,000 mls @ 125 mls/hr IV .Q8H MARCELLUS Stop: 03/04/25 16:30 Last Admin: 02/02/25 17:00 Dose: 125 mls/hr Ondansetron HCl (Ondansetron Inj 2 Mg/Ml Inj 2 Ml) 4 mg IV Q6H PRN; Protocol PRN Reason: NAUSEA OR VOMITING Stop: 03/04/25 17:47 Pantoprazole Sodium (Pantoprazole Inj 40 Mg Vial) 40 mg IVP QDAY MARCELLUS Stop: 03/04/25 17:59 Sennosides (Senna Tablet) 1 tab PO QDAY MARCELLUS; Protocol Stop: 03/04/25 17:59 Discontinued Medications Hydrocodone Bitart/Acetaminophen (Hydrocodone/Apap 5/325 Tablet) 1 tab PO X1 ONE Stop: 02/02/25 15:04 Last Admin: 02/02/25 15:07 Dose: 1 tab Hydromorphone HCl (Hydromorphone Inj 2 Mg/Ml Vial) 1 mg IVP X1 ONE Stop: 02/02/25 16:31 Last Admin: 02/02/25 17:00 Dose: 1 mg Piperacillin/Tazobactam/Dextrose (Zosyn) 3.375 gm in 50 mls @ 100 mls/hr IV X1 ONE Stop: 02/02/25 17:00 Last Infusion: 02/02/25 17:35 Dose: Infused Ibuprofen (Ibuprofen Tab 600 Mg Tablet) 600 mg PO X1 ONE Stop: 02/02/25 15:09 Last Admin: 02/02/25 15:15 Dose: 600 mg Ondansetron HCl (Ondansetron Odt 4 Mg Tabrap) 4 mg PO X1 ONE; Protocol Stop: 02/02/25 15:04 Last Admin: 02/02/25 15:08 Dose: 4 mg Ondansetron HCl (Ondansetron Inj 2 Mg/Ml Inj 2 Ml) 4 mg IV X1 ONE; Protocol Stop: 02/02/25 16:31 Last Admin: 02/02/25 16:58 Dose: 4 mg Assessment & Plan Plan Patient is a 44 y.o female with no past medical history who presented to the ED with persistent RUQ pain and admitted to med/surg for further management of acute calculus cholecystitis. #Sepsis 2/2 #Acute calculus cholecystitis Patient presented with persistent RUQ pain for the last week despite oral pain meds and outpaitent oral Abx. Patient presented to the ED with low grade fever, n/v, and lack of appetite. Labs significant for leukocytosis, elevated Pro-jadiel and Alk Phos. -Admitted to Med/Surg -Started on IV Zosyn -Consulted Gen Surg, appreciate recs -NPO after midnight -Pain regimen: Mild to Moderate (1-3/10) Acetaminophen 650mg Q6H PO PRN, Mod to Severe (4-6/10) Hydrocodone/APAP Q6H PO PRN , Severe (7-10/10) Dilaudid 1mg Q4H IV PRN -IV Zofran for nausea -Acetaminophen for fever -IV fluids #Mild microcytic anemia Patient presented with hemoglobin of 11.53 days ago, MCV under 80. - Continue to monitor with daily CBC - Transfuse if hemoglobin less than 7 - If CBC continues to show microcytic anemia, would warrant outpatient iron studies #Asymptomatic bacteriuria Patient denies any symptoms of UTI, however UA positive for UTI and hematuria. - Continue with IV Zosyn Health Maintenance: DVT prophylaxis: Heparin subcu Diet: N.p.o. Amor: No Lines: PIV Supplemental O2: None CODE STATUS: Full code Disposition: Patient admitted to [facility] [place] for further management of acute cholecystitis. General surgery consulted, patient is kept n.p.o. for possible surgery tomorrow. Patient's plan and care discussed with my attending, Dr. Jacque Willard MD PGY-2 Attending Provider Attestation/Addendum I reviewed labs, imaging, EKG, home medications and prior available records. Face to face evaluation was performed by me. I have personally examined the patient and discussed assessment and plan with the IM team. I reviewed the resident note and agree with the plan with exceptions as below. Sepsis secondary to acute cholecystitis versus acute UTI Acute cholecystitis Acute UTI Hypokalemia Started IV fluids Started IV Zosyn Management of pain/nausea as needed Trend WBC Follow-up blood and urine cultures Replete potassium as needed and follow-up BMP Consulted general surgery for cholecystectomy
[2025-02-02] MEDS: PANTOPRAZOLE INJ 40 MG VIAL IVP (19:35)
[2025-02-02] MEDS: SENNA TABLET 1 TAB PO (19:38)
[2025-02-02] MEDS: RINGERS LACTATED 1000 ML 1,000 ML 999 ML IV (19:39)
[2025-02-02] MEDS: SODIUM CHLORIDE 0.9% 1000 ML 1,000 ML 100 ML IV (19:43)
[2025-02-02] MEDS: HEPARIN SOD INJ 5000 UNIT/ML VIAL SC (21:44)
[2025-02-03] VITALS (13 sets, daily range): BP systolic 110–142; BP diastolic 64–84; PULSE 68–93; RESP 14–20; TEMP 36.2–36.8; O2SAT 94–100
[2025-02-03] MEDS: PIPER/TAZO 3.375 GM PREMIX 3.375 GM/50 ML BAG IV ×4 (05:08→23:32)
[2025-02-03] MEDS: HYDROmorphone INJ 2 MG/ML VIAL 1 MG IVP ×2 (05:16→16:14)
[2025-02-03 06:11] LABS: Basophils % (Auto) 0 % (0-2.5); Eosinophils # (Auto) 0.3 Thou/mm3 (0.0-0.5); Eosinophils % (Auto) 3 % (0-10); Hematocrit 30.2 % (36.0-46.0); Hemoglobin 10.4 g/dL (12.0-16.0); Immature Granulocytes % (Auto) 0 % (0-0); Immature Granulocytes Auto 0.04 Thou/mm3 (0.00-0.00); Lymphocytes # (Auto) 1.9 Thou/mm3 (1.0-4.8); Lymphocytes % (Auto) 21 % (10-50); Mean Corpuscular HGB Conc 34.4 g/dl (31.0-37.0); Mean Corpuscular Hemoglobin 26.4 pg (25.0-35.0); Mean Corpuscular Volume 77 fL (80-100); Monocytes % (Auto) 11 % (0-12); Neutrophils # (Auto) 5.7 Thou/mm3 (1.8-7.7); Neutrophils % (Auto) 64 % (37-80); Nucleated Red Blood Cell % 0 /100 WBC (0); Platelet Count 338 Thou/mm3 (140-440); RDW Standard Deviation 41.7 fL (36.4-46.3); Red Blood Count 3.94 Miln/mm3 (4.00-5.20); White Blood Count 8.9 Thou/mm3 (3.6-11.0)
[2025-02-03 06:37] LABS: Alanine Aminotransferase 17 U/L (10-49); Albumin, Serum 3.5 gm/dL (3.5-5.0); Albumin/Globulin Ratio 1.3 (1.2-2.2); Alkaline Phosphatase 171 U/L (46-116); Anion Gap 14 (7-16); Aspartate Amino Transferase 13 U/L (0-34); BUN/Creatinine Ratio 17 Ratio (12-20); Bilirubin,Total 0.7 mg/dL (0.3-1.2); Blood Urea Nitrogen 12 mg/dL (9-23); Calcium 7.9 mg/dL (8.3-10.6); Calcium (Corrected) 8.3 mg/dL (8.5-10.1); Carbon Dioxide 26.2 mMol/L (20.0-31.0); Chloride 101 mMol/L (98-107); Creatinine (Component) 0.7 mg/dL (0.6-1.3); Estimated Creatinine Clearance 113.4 mL/min (>60); Globulin 2.7 gm/dL (2.3-3.5); Glucose 87 mg/dL (74-106); Magnesium 1.8 mg/dL (1.6-2.6); Osmolality,Calculated 279 (275-295); Potassium 2.9 mMol/L (3.4-5.1); Sodium 141 mMol/L (136-145); Total Protein 6.2 gm/dL (5.7-8.2); eGFR > 60 See Note
[2025-02-03 06:56] LABS: Partial Thromboplastin Time 37.6 Seconds (22.0-36.0); Prothrombin Time 11.2 Seconds (9.0-12.2)
[2025-02-03] MEDS: POTASSIUM CHLORIDE 20 mEq TABCR 40 MEQ PO (08:15)
[2025-02-03] MEDS: SENNA TABLET 1 TAB PO (08:16)
[2025-02-03] MEDS: POTASSIUM CHL 10 mEq IVPB 10 MEQ/100 ML BAG 100 MEQ IV ×2 (08:16→08:58)
[2025-02-03] MEDS: PANTOPRAZOLE INJ 40 MG VIAL IVP (08:16)
[2025-02-03] MEDS: SODIUM CHLORIDE 0.9% 1000 ML 1,000 ML 100 ML IV (08:19)
--- NOTE | 2025-02-03 09:41 | ESPR_ITS ---
Documentation for date of: 02/03/25 Subjective Subjective Interval history: Patient was seen at bedside this morning. No overnight events. Patient stated that she did not have any nausea or vomiting last night and that her pain is a little bit better today. Spoke with general surgeon who stated to keep patient n.p.o. and that it was okay to give p.o. potassium at this time. No other complaints at this time. Will keep patient n.p.o. and hold morning heparin for DVT prophylaxis for possible surgery today. Exam Vital Signs Temp Pulse Resp BP Pulse Ox O2 Del Method 97.3 F 82 17 121/77 96 Room Air 02/03/25 07:40 02/03/25 07:40 02/03/25 07:40 02/03/25 07:40 02/03/25 07:40 02/03/25 07:40 Narrative Exam General: A/O x3, no acute distress, well-nourished, well-developed Eyes: PERRL, EOMI. Anicteric, vision grossly intact. Ears: No ear pain, no ear discharge, Hearing grossly intact. Nose: No nasal discharge. Mouth/Throat: Moist mucous membranes, no redness, no lesions. Neck: Neck supple, non-tender, no cervical lymphadenopathy. Lungs: Clear PATTY to auscultation and percussion, No accessory muscle use. Cardio: Normal S1/S2, regular rhythm, no murmurs, no JVD Abdomen: Soft, tenderness to RUQ with palpation, no palpable masses, peristalsis present, no guarding or rebound. Extremities: Symmetrical, no significant deformities, no peripheral edema , non-tender, peripheral pulses presents. Skin: No rashes, no lesions, warm to touch. Neuro: No focal neurological deficits. motor and sensory intact Psych: Cooperative, appropriate mood and effect. Objective Labs 02/03/25 04:37 02/03/25 16:05 Labs: Laboratory Results - last 24 hr 02/02/25 02/02/25 02/03/25 15:17 15:42 04:37 WBC 13.9 H 8.9 D RBC 4.54 3.94 L Hgb 12.0 10.4 L Hct 34.0 L 30.2 L MCV 75 L 77 L MCH 26.4 26.4 MCHC 35.3 34.4 RDW Std Deviation 39.2 41.7 Plt Count 358 D 338 Neut % (Auto) 76 64 Lymph % (Auto) 11 21 [place] % (Auto) 12 11 Eos % (Auto) 1 3 Baso % (Auto) 0 0 Neut # (Auto) 10.5 H 5.7 Lymph # (Auto) 1.6 1.9 [place] # (Auto) 1.7 H 1.0 H Eos # (Auto) 0.1 0.3 Baso # (Auto) 0.0 0.0 Immature Gran # (Auto) 0.06 H 0.04 H Absolute Nucleated RBC 0.00 0.00 Immature Gran % 0 0 Nucleated RBC % 0 0 PT 11.2 INR 1.0 APTT 37.6 H Sodium 136 141 Potassium 3.2 L 2.9 L Chloride 99 101 Carbon Dioxide 25.5 26.2 Anion Gap 12 14 BUN 10 12 Creatinine 0.7 0.7 Estim Creat Clear Calc 120.1 113.4 eGFR > 60 > 60 BUN/Creatinine Ratio 14 17 Glucose 98 87 Calculated Osmolality 270 L 279 Lactic Acid 1.2 Calcium 8.3 7.9 L Corrected Calcium 8.3 L 8.3 L Magnesium 1.8 Total Bilirubin 0.9 D 0.7 AST 17 13 ALT 23 17 Alkaline Phosphatase 195 H D 171 H D Total Protein 6.9 6.2 Albumin 4.0 3.5 D Globulin 2.9 2.7 Albumin/Globulin Ratio 1.4 1.3 Lipase 30 Procalcitonin 2.46 H Ur Collection Type Clean Catch Urine Color [place] A Urine Clarity Cloudy A Urine pH 6.0 Ur Specific [place] 1.025 Urine Protein 1+ A Urine Glucose (UA) Negative Urine Ketones 4+ A Urine Blood 3+ A Urine Nitrite Negative Urine Bilirubin 1+ A Urine Urobilinogen (Auto) 4.0 Ur Leukocyte Esterase Positive Urine RBC 2748 H Urine WBC 255 H Ur Squamous Epith Cells 3 Urine Bacteria 1+ A Urine HCG, Qual Negative Quality Measures Quality Measures none Assessment & Plan Assessment Current Active Medications: Generic Name Dose Route Start Last Admin Trade Name Freq PRN Reason Stop Dose Admin Acetaminophen 650 mg 02/02/25 17:48 Acetaminophen 325 Mg Tablet PO 03/04/25 17:47 Q6H PRN Fever >100.4 or Pain 1-3 Hydrocodone Bitart/Acetaminophen 1 tab 02/02/25 17:48 Hydrocodone/Apap 5/325 Tablet PO 02/07/25 17:47 Q6HR PRN PAIN SCALE 4-6 (Moderate Heparin Sodium (Porcine) 5,000 unit 02/02/25 21:00 02/03/25 08:08 Heparin Sod Inj 5000 Unit/Ml Vial SC 02/16/25 20:59 Not Given Q12HR MARCELLUS Hydromorphone HCl 1 mg 02/02/25 17:48 02/03/25 05:16 Hydromorphone Inj 2 Mg/Ml Vial IVP 02/07/25 17:47 1 mg Q4H PRN Administration Pain 7-10 Sodium Chloride 1,000 mls @ 100 mls/hr 02/02/25 18:46 02/03/25 08:19 Ns IV 03/04/25 18:44 100 mls/hr .Q10H MARCELLUS Administration Piperacillin/Tazobactam/Dextrose 3.375 gm in 50 mls @ 100 mls/hr 02/03/25 00:00 02/03/25 05:08 Zosyn IV 02/10/25 00:00 100 mls/hr Q6HR MARCELLUS Administration Ondansetron HCl 4 mg 02/02/25 17:48 Ondansetron Inj 2 Mg/Ml Inj 2 Ml IV 03/04/25 17:47 Q6H PRN NAUSEA OR VOMITING Protocol Pantoprazole Sodium 40 mg 02/02/25 18:00 02/03/25 08:16 Pantoprazole Inj 40 Mg Vial IVP 03/04/25 17:59 40 mg QDAY MARCELLUS Administration Sennosides 1 tab 02/02/25 18:00 02/03/25 08:16 Senna Tablet PO 03/04/25 17:59 1 tab QDAY MARCELLUS Administration Protocol Plan 44-year-old female with no relevant past medical history was admitted to the hospital on 02/02/2025 due to acute calculus cholecystitis. #Acute calculus cholecystitis Patient was complaining of right upper quadrant pain since last week and she had been seen in the ED and discharged on oral antibiotics. MRCP which showed acute calculus cholecystitis Abdomen/pelvis CT showed acute cholecystitis Gallbladder ultrasound showed acute cholecystitis Plan: Will continue with Zosyn (02/02/2025?) Patient n.p.o. at this time IV Zofran for nausea Acetaminophen for fever [place] for moderate to severe pain as needed and Dilaudid for breakthrough pain General Surgery consulted, appreciate recommendations #Mild microcytic anemia Patient is hemoglobin today was 10.4 This drop was most likely hemodilutional No active signs of bleeding Plan: Will transfuse hemoglobin less than 7 #Asymptomatic bacteriuria Patient had no symptoms of UTI, but UA was positive for a UTI. Covering with Zosyn for now Disposition: Patient admitted to [facility] for calculus cholecystitis, pending surgery Diet: NPO GI prophylaxis: protonix DVT prophylaxis: heparin sub cu Code: Full Case disclosed with Attending Dr. Jacque Young PGY1 Attending Provider Attestation/Addendum I reviewed labs, imaging, EKG, home medications and prior available records. Face to face evaluation was performed by me. I have personally examined the patient and discussed assessment and plan with the IM team. I reviewed the resident note and agree with the plan with exceptions as below. Sepsis secondary to acute cholecystitis versus acute UTI Acute cholecystitis Acute UTI Hypokalemia Started IV fluids Started IV Zosyn Management of pain/nausea as needed Trend WBC: Downtrending Follow-up blood and urine cultures Replete potassium as needed and follow-up BMP Consulted general surgery for cholecystectomy: Status post laparoscopic cholecystectomy on 02/03
[2025-02-03] MEDS: KCL 20 mEq/L in D5-1/2NS 20 MEQ/1,000 ML BAG 100 MEQ IV (11:08)
--- NOTE | 2025-02-03 13:17 | SUR.PHASEI ---
received report from ASHLYN Johnston and Dr. Bolden. Pt arousable to voice, vss, IV in place no s/s of redness or infiltration to site. dressing dermbond x4 to abd, CDI. pt denies any pain or nausea at this time.
--- NOTE | 2025-02-03 13:24 | PD.SURCONS ---
HPI Consult details Consult date: 02/02/25 Reason for consultation narrative: Right upper quadrant abdominal pain with nausea and vomiting History of present illness: 44-year-old female presented to the emergency department with abdominal pain with nausea and vomiting. This is her third trip in the emergency department in the last week for same symptoms. Her pain is in the right upper quadrant rating to her back and associated with nausea and vomiting, she has not been able to eat or tolerate any food. Her liver enzymes were slightly elevated. She has had CT scan and MRCP last week that revealed gallstones with gallbladder wall thickening and edema. Ultrasound during this hospitalization revealed gallstones with gallbladder wall thickening and edema. She is started on IV antibiotic and awaiting admission to the hospital. Review of Systems Constitutional Constitutional: Denies chills and Denies fever(s) Cardiovascular Cardiovascular: Denies chest pain Respiratory Respiratory: Denies cough Gastrointestinal Gastrointestinal: Reports abdominal pain, Reports nausea and Reports vomiting Genitourinary Genitourinary: Denies difficulty voiding Musculoskeletal Musculoskeletal: Reports back pain Hematologic/Lymphatic Hematologic/Lymphatic: Denies easy bleeding and Denies easy bruising Past Medical History Surgical History OTHER SURGICAL HX: Tubal ligation, trigger finger release Social History SMOKING STATUS: Never smoker SUBSTANCE USE: does not use ALCOHOL: Current Meds Home Medications and Allergies Home Medications ?Medication ?Instructions ?Recorded ?Confirmed ?Type Multivitamin with Minerals 1 ea PO QDAY #0 tabs 08/24/17 History (Multiple Vitamin) Allergies Allergy/AdvReac Type Severity Reaction Status Date / Time No Known Allergies Allergy Unknown Uncoded 02/02/25 14:43 Exam Vital Signs Temp Pulse Resp BP Pulse Ox O2 Del Method 97.2 F 93 18 131/76 H 95 Room Air 02/03/25 11:41 02/03/25 11:41 02/03/25 11:41 02/03/25 11:41 02/03/25 11:41 02/03/25 11:41 Constitutional Constitutional: no acute distress Routine Abdominal Exam Comments: Abdomen is soft and nondistended. She has epigastric and right upper quadrant tenderness to palpation with guarding, positive Marr sign Results Results: Laboratory Laboratory results: results reviewed Results: Imaging Imaging narrative: CT scan and MRCP from last week images reviewed, radiologist interpretation noted. Ultrasound findings noted Assessment & Plan Problem List (1) Acute calculous cholecystitis: Status: Acute Plan Will keep patient n.p.o. with IV fluids and IV antibiotics and plan for laparoscopic possible open cholecystectomy. Risks include but not limited to infection, bleeding, injury to bowel, liver, stomach, bile duct, retained stone, bile leak, abdominal sepsis and or abdominal abscess, need for further procedure and or operation discussed with the patient and her . Benefits and alternatives explained to them, all their questions answered, they agreed and consented to proceed with the operation.
--- NOTE | 2025-02-03 13:29 | ESOP_ITS ---
Date of Procedure 02/03/25 Pre Op Diagnosis Cholelithiasis with acute cholecystitis Post Op Diagnosis Cholelithiasis with acute cholecystitis Empyema of the gallbladder Procedure Laparoscopic cholecystectomy Findings Very distended and thick-walled gallbladder with large gallstone and empyema of the gallbladder Procedure Description Patient was brought into the operating room in supine position. After administration of general endotracheal anesthesia abdomen was prepped and draped in standard surgical manner. A Veress needle was inserted through the umbilicus and pneumoperitoneum was obtained up to 15 mmHg. The Veress needle was then removed, a 5 mm infraumbilical incision was made and the 5mm trocar was inserted. Laparoscopic camera was placed. Under direct visualization a laparoscopic camera a 10 mm trocar was placed in subxiphoid and two 5 mm trocars placed in right upper quadrant. The anterior surface of the liver was smooth without nodules or any lesions. The gallbladder was identified and was noted to be very distended, tense and thick-walled. The gallbladder was decompressed, the contents were purulent fluid consistent with empyema of the gallbladder. The gallbladder was retracted cephalad and laterally. Dissection started near the infundibulum of gallbladder where cystic duct and gallbladder junction c learly identified. The cystic duct was circumferentially dissected off the peritoneum and surrounding inflammatory tissue. The critical view of safety was clearly demonstrated. Cystic duct was then divided between 2 endoclips proximally and one distally. The cystic artery was similarly dissected and divided. The gallbladder was then from the liver bed using electrocautery. The gallbladder was then placed inside an Endo Catch and removed from the abdomen utilizing subxiphoid trocar site. The area was copiously and thoroughly washed and irrigated, all the fluid was suctioned and the suction fluid returned clear. Hemostasis achieved using electrocautery, also topical hemostatic agent using snow Surgicel placed at the gallbladder fossa to further assure hemostasis. Endoclips noted be in place and intact without any bleeding or any leakage. Hemostasis was adequate and satisfactory. The subxiphoid trocar sites fascial defect was closed with 0 Vicryl using Endo Closure device. Instruments and trocars removed, pneumoperitoneum was evacuated and the incisions closed with 4-0 Monocryl in subcuticular fashion. Instrument needle and sponge counts were all reported to be correct X2. Patient tolerated the procedure well, was extubated, breathing spontaneously and without difficulty and was transferred to postanesthesia care in stable condition. Anesthesia GETA and local Pathology / specimen Other (Gallbladder and contents) Estimated Blood Loss 25 Condition Stable Disposition PACU Surgeon Matthieu Uriarte MD Surgical Staff Operation Date: 02/03/25 12:15 Case Staff Anesthesiologist: Ariel Pederson RN First Assistant: Danielle Flores
--- NOTE | 2025-02-03 13:40 | SUR.PHASEI ---
Pt awake, A&ox4. pt recovering well, vss, dressing x4 remain cdi, iv remain free of redness or infiltration. Pt reports 1/10 soreness to RUQ of abd, pt states it is tolerable. report given to ASHLYN Vera.
[2025-02-03] MEDS: ACETAMINOPHEN IVPB 1,000 MG/100 ML VIAL 250 MG IV (14:07)
[2025-02-03 16:47] LABS: Potassium 3.6 mMol/L (3.4-5.1)
[2025-02-03] MEDS: DOCUSATE SOD 100 MG CAPSULE PO (20:06)
[2025-02-04] VITALS (7 sets, daily range): BP systolic 110–134; BP diastolic 71–81; PULSE 65–99; RESP 15–97; TEMP 36.1–36.7; O2SAT 94–98
[2025-02-04] MEDS: ACETAMINOPHEN IVPB 1,000 MG/100 ML VIAL 250 MG IV ×2 (00:55→05:46)
[2025-02-04] MEDS: KCL 20 mEq/L in D5-1/2NS 20 MEQ/1,000 ML BAG 100 MEQ IV (04:44)
[2025-02-04] MEDS: HYDROmorphone INJ 2 MG/ML VIAL 1 MG IVP (04:44)
[2025-02-04] MEDS: PIPER/TAZO 3.375 GM PREMIX 3.375 GM/50 ML BAG IV ×4 (05:45→23:18)
[2025-02-04] MEDS: DOCUSATE SOD 100 MG CAPSULE PO ×2 (08:01→20:01)
[2025-02-04] MEDS: PANTOPRAZOLE INJ 40 MG VIAL IVP (08:01)
--- NOTE | 2025-02-04 10:10 | PD.SURPROG ---
Documentation for date of: 02/04/25 Subjective Subjective Narrative: Patient is seen and examined. Her pain is improving. She is tolerating liquid diet Exam Vital Signs Temp Pulse Resp BP Pulse Ox O2 Del Method O2 Flow Rate 97.0 F 76 18 110/72 96 Room Air 2 02/04/25 07:50 02/04/25 07:50 02/04/25 07:50 02/04/25 07:50 02/04/25 07:50 02/04/25 07:50 02/03/25 20:00 Constitutional Constitutional: no acute distress Routine Abdominal Exam Comments: Abdomen is soft and minimally distended. Incisions are clean, dry and intact Assessment & Plan Assessment Additional comments: Postop day #1 status post laparoscopic cholecystectomy Plan Continue IV antibiotics for at least 48 hours as patient had empyema of the gallbladder. Increase ambulation and use incentive spirometer. Procedures Procedures Laparoscopic cholecystectomy
[2025-02-04 10:23] LABS: Basophils % (Auto) 0 % (0-2.5); Eosinophils % (Auto) 0 % (0-10); Hematocrit 30.1 % (36.0-46.0); Hemoglobin 10.1 g/dL (12.0-16.0); Immature Granulocytes % (Auto) 1 % (0-0); Immature Granulocytes Auto 0.16 Thou/mm3 (0.00-0.00); Lymphocytes # (Auto) 1.3 Thou/mm3 (1.0-4.8); Lymphocytes % (Auto) 10 % (10-50); Mean Corpuscular HGB Conc 33.6 g/dl (31.0-37.0); Mean Corpuscular Hemoglobin 26.4 pg (25.0-35.0); Mean Corpuscular Volume 79 fL (80-100); Monocytes # (Auto) 0.9 Thou/mm3 (0.0-0.8); Monocytes % (Auto) 7 % (0-12); Neutrophils # (Auto) 10.6 Thou/mm3 (1.8-7.7); Neutrophils % (Auto) 82 % (37-80); Nucleated Red Blood Cell % 0 /100 WBC (0); Platelet Count 404 Thou/mm3 (140-440); RDW Standard Deviation 43.2 fL (36.4-46.3); Red Blood Count 3.82 Miln/mm3 (4.00-5.20); White Blood Count 12.9 Thou/mm3 (3.6-11.0)
--- NOTE | 2025-02-04 10:32 | PD.RESPRO ---
Documentation for date of: 02/04/25 Subjective Subjective Interval history: Patient was seen and examined at bedside this morning. No overnight events. Patient got cholecystectomy yesterday and there was purulent fluid consistent with empyema of the gallbladder seen during surgery therefore general surgery would like to keep patient for 48 hours on IV antibiotics. Will continue with Zosyn for now and will possibly discharge patient in the next 24 to 48 hours. Patient had no complaints today and she stated that she had a bowel movement yesterday after surgery which was watery, but none today. WBC up trended most likely reactive secondary to surgery. No spikes in fevers. Exam Vital Signs Temp Pulse Resp BP Pulse Ox O2 Del Method O2 Flow Rate 97.0 F 76 18 110/72 96 Room Air 2 02/04/25 07:50 02/04/25 07:50 02/04/25 07:50 02/04/25 07:50 02/04/25 07:50 02/04/25 07:50 02/03/25 20:00 Narrative Exam General: A/O x3, no acute distress, well-nourished, well-developed Eyes: PERRL, EOMI. Anicteric, vision grossly intact. Ears: No ear pain, no ear discharge, Hearing grossly intact. Nose: No nasal discharge. Mouth/Throat: Moist mucous membranes, no redness, no lesions. Neck: Neck supple, non-tender, no cervical lymphadenopathy. Lungs: Clear PATTY to auscultation and percussion, No accessory muscle use. Cardio: Normal S1/S2, regular rhythm, no murmurs, no JVD Abdomen: Soft, non tender, no palpable masses, peristalsis present, no guarding or rebound. Extremities: Symmetrical, no significant deformities, no peripheral edema , non-tender, peripheral pulses presents. Skin: No rashes, no lesions, warm to touch. Neuro: No focal neurological deficits. motor and sensory intact Psych: Cooperative, appropriate mood and effect. Objective Labs 02/05/25 06:26 02/05/25 06:26 Labs: Laboratory Results - last 24 hr 02/03/25 02/04/25 16:05 08:57 WBC 12.9 H D RBC 3.82 L Hgb 10.1 L Hct 30.1 L MCV 79 L MCH 26.4 MCHC 33.6 RDW Std Deviation 43.2 Plt Count 404 D Neut % (Auto) 82 H Lymph % (Auto) 10 [place] % (Auto) 7 Eos % (Auto) 0 Baso % (Auto) 0 Neut # (Auto) 10.6 H Lymph # (Auto) 1.3 [place] # (Auto) 0.9 H Eos # (Auto) 0.0 Baso # (Auto) 0.0 Immature Gran # (Auto) 0.16 H Absolute Nucleated RBC 0.00 Immature Gran % 1 H Nucleated RBC % 0 Potassium 3.6 D Quality Measures Quality Measures none Assessment & Plan Assessment Current Active Medications: Generic Name Dose Route Start Last Admin Trade Name Freq PRN Reason Stop Dose Admin Acetaminophen 650 mg 02/02/25 17:48 Acetaminophen 325 Mg Tablet PO 03/04/25 17:47 Q6H PRN Fever >100.4 or Pain 1-3 Hydrocodone Bitart/Acetaminophen 1 tab 02/02/25 17:48 Hydrocodone/Apap 5/325 Tablet PO 02/07/25 17:47 Q6HR PRN PAIN SCALE 4-6 (Moderate Docusate Sodium 100 mg 02/03/25 21:00 02/04/25 08:01 Docusate Sod 100 Mg Capsule PO 03/05/25 20:59 100 mg BID MARCELLUS Administration Protocol Hydromorphone HCl 1 mg 02/02/25 17:48 02/04/25 04:44 Hydromorphone Inj 2 Mg/Ml Vial IVP 02/07/25 17:47 1 mg Q4H PRN Administration Pain 7-10 Piperacillin/Tazobactam/Dextrose 3.375 gm in 50 mls @ 100 mls/hr 02/03/25 00:00 02/04/25 05:45 Zosyn IV 02/10/25 00:00 100 mls/hr Q6HR MARCELLUS Administration Ondansetron HCl 4 mg 02/02/25 17:48 Ondansetron Inj 2 Mg/Ml Inj 2 Ml IV 03/04/25 17:47 Q6H PRN NAUSEA OR VOMITING Protocol Pantoprazole Sodium 40 mg 02/02/25 18:00 02/04/25 08:01 Pantoprazole Inj 40 Mg Vial IVP 03/04/25 17:59 40 mg QDAY MARCELLUS Administration Plan 44-year-old female with no relevant past medical history was admitted to the hospital on 02/02/2025 due to acute calculus cholecystitis. #Acute calculus cholecystitis s/p cholecystectomy Patient was complaining of right upper quadrant pain since last week and she had been seen in the ED and discharged on oral antibiotics. MRCP which showed acute calculus cholecystitis Abdomen/pelvis CT showed acute cholecystitis Gallbladder ultrasound showed acute cholecystitis Patient had cholecystectomy yesterday and purulent fluid was seen which was consistent with empyema of the gallbladder seen during surgery therefore general surgery would like to keep patient for 48 hours on IV antibiotics. Plan: Will continue with Zosyn (02/02/2025?) IV Zofran for nausea Acetaminophen for fever [place] for moderate to severe pain as needed and Dilaudid for breakthrough pain General Surgery consulted, appreciate recommendations #Mild microcytic normochromic anemia Patient is hemoglobin today was 10.1 This drop was most likely hemodilutional No active signs of bleeding Plan: Will transfuse hemoglobin less than 7 #Asymptomatic bacteriuria Patient had no symptoms of UTI, but UA was positive for a UTI. Covering with Zosyn for now #Hypokalemia, resolved Disposition: Patient admitted to [facility] for calculus cholecystitis, pending surgery Diet: NPO GI prophylaxis: protonix DVT prophylaxis: heparin sub cu Code: Full Case disclosed with Attending Dr. Jacque Young PGY1 Attending Provider Attestation/Addendum I reviewed labs, imaging, EKG, home medications and prior available records. Face to face evaluation was performed by me. I have personally examined the patient and discussed assessment and plan with the IM team. I reviewed the resident note and agree with the plan with exceptions as below. Sepsis secondary to acute cholecystitis versus acute UTI Acute cholecystitis Acute UTI Hypokalemia Consulted general surgery for cholecystectomy: Status post laparoscopic cholecystectomy on 02/03 Continue IV Zosyn for 48 hours per surgery recommendations given the empyema of gallbladder Management of pain/nausea as needed Trend WBC: Downtrending Follow-up blood and urine cultures: Negative to date Replete potassium as needed and follow-up BMP
[2025-02-04 10:55] LABS: Alanine Aminotransferase 24 U/L (10-49); Albumin, Serum 3.5 gm/dL (3.5-5.0); Albumin/Globulin Ratio 1.3 (1.2-2.2); Alkaline Phosphatase 197 U/L (46-116); Anion Gap 10 (7-16); Aspartate Amino Transferase 24 U/L (0-34); BUN/Creatinine Ratio 15 Ratio (12-20); Bilirubin,Total 0.5 mg/dL (0.3-1.2); Blood Urea Nitrogen 9 mg/dL (9-23); Calcium 7.9 mg/dL (8.3-10.6); Calcium (Corrected) 8.3 mg/dL (8.5-10.1); Carbon Dioxide 25.1 mMol/L (20.0-31.0); Chloride 102 mMol/L (98-107); Creatinine (Component) 0.6 mg/dL (0.6-1.3); Estimated Creatinine Clearance 132.3 mL/min (>60); Globulin 2.6 gm/dL (2.3-3.5); Glucose 180 mg/dL (74-106); Osmolality,Calculated 277 (275-295); Potassium 3.4 mMol/L (3.4-5.1); Sodium 137 mMol/L (136-145); Total Protein 6.1 gm/dL (5.7-8.2); eGFR > 60 See Note
[2025-02-04] MEDS: HYDROcodone/APAP 5/325 TABLET 1 TAB PO (23:24)
[2025-02-05] VITALS (8 sets, daily range): BP systolic 108–136; BP diastolic 74–87; PULSE 70–101; RESP 16–97; TEMP 36.1–36.3; O2SAT 95–96; BMI 41.5
[2025-02-05] MEDS: PIPER/TAZO 3.375 GM PREMIX 3.375 GM/50 ML BAG IV ×3 (05:09→18:02)
[2025-02-05] MEDS: HYDROcodone/APAP 5/325 TABLET 1 TAB PO ×2 (05:26→20:19)
[2025-02-05 06:46] LABS: Basophils % (Auto) 0 % (0-2.5); Eosinophils # (Auto) 0.2 Thou/mm3 (0.0-0.5); Eosinophils % (Auto) 2 % (0-10); Hematocrit 30.8 % (36.0-46.0); Hemoglobin 10.3 g/dL (12.0-16.0); Immature Granulocytes % (Auto) 3 % (0-0); Immature Granulocytes Auto 0.28 Thou/mm3 (0.00-0.00); Lymphocytes # (Auto) 3.6 Thou/mm3 (1.0-4.8); Lymphocytes % (Auto) 37 % (10-50); Mean Corpuscular HGB Conc 33.4 g/dl (31.0-37.0); Mean Corpuscular Hemoglobin 25.7 pg (25.0-35.0); Mean Corpuscular Volume 77 fL (80-100); Monocytes # (Auto) 0.9 Thou/mm3 (0.0-0.8); Monocytes % (Auto) 10 % (0-12); Neutrophils # (Auto) 4.8 Thou/mm3 (1.8-7.7); Neutrophils % (Auto) 49 % (37-80); Nucleated Red Blood Cell % 0 /100 WBC (0); Platelet Count 469 Thou/mm3 (140-440); RDW Standard Deviation 42.6 fL (36.4-46.3); Red Blood Count 4.01 Miln/mm3 (4.00-5.20); White Blood Count 9.7 Thou/mm3 (3.6-11.0)
[2025-02-05 07:10] LABS: Alanine Aminotransferase 24 U/L (10-49); Albumin, Serum 3.6 gm/dL (3.5-5.0); Albumin/Globulin Ratio 1.3 (1.2-2.2); Alkaline Phosphatase 169 U/L (46-116); Anion Gap 12 (7-16); Aspartate Amino Transferase 24 U/L (0-34); BUN/Creatinine Ratio 11 Ratio (12-20); Bilirubin,Total 0.6 mg/dL (0.3-1.2); Blood Urea Nitrogen 8 mg/dL (9-23); Calcium (Corrected) 8.3 mg/dL (8.5-10.1); Carbon Dioxide 26.7 mMol/L (20.0-31.0); Chloride 101 mMol/L (98-107); Creatinine (Component) 0.7 mg/dL (0.6-1.3); Estimated Creatinine Clearance 113.4 mL/min (>60); Globulin 2.8 gm/dL (2.3-3.5); Glucose 92 mg/dL (74-106); Osmolality,Calculated 277 (275-295); Potassium 3.1 mMol/L (3.4-5.1); Sodium 140 mMol/L (136-145); Total Protein 6.4 gm/dL (5.7-8.2); eGFR > 60 See Note
[2025-02-05] MEDS: POTASSIUM CHLORIDE 20 mEq TABCR 40 MEQ PO (08:53)
[2025-02-05] MEDS: DOCUSATE SOD 100 MG CAPSULE PO (08:54)
[2025-02-05] MEDS: PANTOPRAZOLE INJ 40 MG VIAL IVP (08:54)
[2025-02-05] MEDS: LACTULOSE SYRUP 20 GM/30 ML UDC PO (08:54)
--- NOTE | 2025-02-05 09:09 | ESPR_ITS ---
Documentation for date of: 02/05/25 Subjective Subjective Interval history: Patient was seen and examined at bedside this morning. No acute overnight events. Will continue Zosyn for today and expect possible discharge tomorrow. Patient still has not had a bowel movement, but has been passing flatulence. Gave lactulose 20 mg x 1 and 40 mg of potassium as patient potassium was low today. WBC down trended and no spikes in fevers. No other complaints at this time. Exam Vital Signs Temp Pulse Resp BP Pulse Ox O2 Del Method O2 Flow Rate 97.0 F 77 17 123/87 H 95 Room Air 2 02/05/25 07:30 02/05/25 07:30 02/05/25 07:30 02/05/25 07:30 02/05/25 07:30 02/05/25 07:30 02/03/25 20:00 Narrative Exam General: A/O x3, no acute distress, well-nourished, well-developed Eyes: PERRL, EOMI. Anicteric, vision grossly intact. Ears: No ear pain, no ear discharge, Hearing grossly intact. Nose: No nasal discharge. Mouth/Throat: Moist mucous membranes, no redness, no lesions. Neck: Neck supple, non-tender, no cervical lymphadenopathy. Lungs: Clear PATTY to auscultation and percussion, No accessory muscle use. Cardio: Normal S1/S2, regular rhythm, no murmurs, no JVD Abdomen: Soft, non tender, no palpable masses, peristalsis present, no guarding or rebound. Extremities: Symmetrical, no significant deformities, no peripheral edema , non-tender, peripheral pulses presents. Skin: No rashes, no lesions, warm to touch. Neuro: No focal neurological deficits. motor and sensory intact Psych: Cooperative, appropriate mood and effect. Objective Labs 02/05/25 06:26 02/05/25 06:26 Labs: Laboratory Results - last 24 hr 02/04/25 02/05/25 08:57 06:26 WBC 12.9 H D 9.7 RBC 3.82 L 4.01 Hgb 10.1 L 10.3 L Hct 30.1 L 30.8 L MCV 79 L 77 L MCH 26.4 25.7 MCHC 33.6 33.4 RDW Std Deviation 43.2 42.6 Plt Count 404 D 469 H D Neut % (Auto) 82 H 49 Lymph % (Auto) 10 37 Wright % (Auto) 7 10 Eos % (Auto) 0 2 Baso % (Auto) 0 0 Neut # (Auto) 10.6 H 4.8 Lymph # (Auto) 1.3 3.6 Wright # (Auto) 0.9 H 0.9 H Eos # (Auto) 0.0 0.2 Baso # (Auto) 0.0 0.0 Immature Gran # (Auto) 0.16 H 0.28 H Absolute Nucleated RBC 0.00 0.00 Immature Gran % 1 H 3 H Nucleated RBC % 0 0 Sodium 137 140 Potassium 3.4 3.1 L Chloride 102 101 Carbon Dioxide 25.1 26.7 Anion Gap 10 12 BUN 9 8 L Creatinine 0.6 0.7 Estim Creat Clear Calc 132.3 113.4 eGFR > 60 > 60 BUN/Creatinine Ratio 15 11 L Glucose 180 H D 92 D Calculated Osmolality 277 277 Calcium 7.9 L 8.0 L Corrected Calcium 8.3 L 8.3 L Total Bilirubin 0.5 0.6 AST 24 24 ALT 24 24 Alkaline Phosphatase 197 H D 169 H D Total Protein 6.1 6.4 Albumin 3.5 3.6 Globulin 2.6 2.8 Albumin/Globulin Ratio 1.3 1.3 Quality Measures Quality Measures none Assessment & Plan Assessment Current Active Medications: Generic Name Dose Route Start Last Admin Trade Name Freq PRN Reason Stop Dose Admin Acetaminophen 650 mg 02/02/25 17:48 Acetaminophen 325 Mg Tablet PO 03/04/25 17:47 Q6H PRN Fever >100.4 or Pain 1-3 Hydrocodone Bitart/Acetaminophen 1 tab 02/02/25 17:48 02/05/25 05:26 Hydrocodone/Apap 5/325 Tablet PO 02/07/25 17:47 1 tab Q6HR PRN Administration PAIN SCALE 4-6 (Moderate Docusate Sodium 100 mg 02/03/25 21:00 02/05/25 08:54 Docusate Sod 100 Mg Capsule PO 03/05/25 20:59 100 mg BID MARCELLUS Administration Protocol Hydromorphone HCl 1 mg 02/02/25 17:48 02/04/25 04:44 Hydromorphone Inj 2 Mg/Ml Vial IVP 02/07/25 17:47 1 mg Q4H PRN Administration Pain 7-10 Piperacillin/Tazobactam/Dextrose 3.375 gm in 50 mls @ 100 mls/hr 02/03/25 00:00 02/05/25 05:09 Zosyn IV 02/10/25 00:00 100 mls/hr Q6HR MARCELLUS Administration Ondansetron HCl 4 mg 02/02/25 17:48 Ondansetron Inj 2 Mg/Ml Inj 2 Ml IV 03/04/25 17:47 Q6H PRN NAUSEA OR VOMITING Protocol Pantoprazole Sodium 40 mg 02/02/25 18:00 02/05/25 08:54 Pantoprazole Inj 40 Mg Vial IVP 03/04/25 17:59 40 mg QDAY MARCELLUS Administration Plan 44-year-old female with no relevant past medical history was admitted to the hospital on 02/02/2025 due to acute calculus cholecystitis. #Acute calculus cholecystitis s/p cholecystectomy Patient was complaining of right upper quadrant pain since last week and she had been seen in the ED and discharged on oral antibiotics. MRCP which showed acute calculus cholecystitis Abdomen/pelvis CT showed acute cholecystitis Gallbladder ultrasound showed acute cholecystitis Patient had cholecystectomy yesterday and purulent fluid was seen which was consistent with empyema of the gallbladder seen during surgery therefore general surgery would like to keep patient for 48 hours on IV antibiotics. Plan: Will continue with Zosyn (02/02/2025?) IV Zofran for nausea Acetaminophen for fever [place] for moderate to severe pain as needed and Dilaudid for breakthrough pain General Surgery consulted, appreciate recommendations #Mild microcytic normochromic anemia Patient is hemoglobin today was 10.3 This drop was most likely hemodilutional No active signs of bleeding Plan: Will transfuse hemoglobin less than 7 #Asymptomatic bacteriuria Patient had no symptoms of UTI, but UA was positive for a UTI. Covering with Zosyn for now #Hypokalemia Potassium 3.1 today Plan: 40 meq K+ PO x1 Disposition: Patient admitted to [facility] for calculus cholecystitis, IV zosyn for total 48 hrs after surgery, possible DC tomorrow. Diet: low fat GI prophylaxis: protonix DVT prophylaxis: heparin sub cu Code: Full Case disclosed with Attending Dr. Jacque Young PGY1 Attending Provider Attestation/Addendum I reviewed labs, imaging, EKG, home medications and prior available records. Face to face evaluation was performed by me. I have personally examined the patient and discussed assessment and plan with the IM team. I reviewed the resident note and agree with the plan with exceptions as below. Sepsis secondary to acute cholecystitis versus acute UTI Acute cholecystitis Acute UTI Hypokalemia Consulted general surgery for cholecystectomy: Status post laparoscopic cholecystectomy on 02/03 Continue IV Zosyn for 48 hours per surgery recommendations given the empyema of gallbladder Management of pain/nausea as needed Trend WBC: Downtrending Follow-up blood and urine cultures: Negative to date Replete potassium as needed and follow-up BMP
--- NOTE | 2025-02-05 09:56 | PC.SS ---
Patient Nellie Sexton is a 44 Year old female admitted for Persistent Ruq Pain. SS met with patient at beside to discuss discharge plan. Patient reports she lives at home with her , Jasper Vazquez who she reports is her surrogate decision maker, [phone]. Patient is independent with all ADL's and does not utilize any source of DME to assist with ambulation. Pharmacy of choice is [facility]. Patient does not have a PCP. At time of discharge patient's will provide transportation. Next of kin, Elvi Vazquez Discharge plan:Home
--- NOTE | 2025-02-05 10:00 | PC.SS ---
SS follow up note; Patient is on IV ABX. White counts being monitored, possible discharge home tomorrow.
[2025-02-05 10:23] LABS: Magnesium 1.8 mg/dL (1.6-2.6)
[2025-02-06] VITALS: BP 130/74; RESP 16; TEMP 36.4; O2SAT 95
[2025-02-06] MEDS: PIPER/TAZO 3.375 GM PREMIX 3.375 GM/50 ML BAG IV ×3 (00:06→12:14)
[2025-02-06 04:00] VITALS: BP 133/84; PULSE 80; RESP 16; TEMP 36.4; O2SAT 94
[2025-02-06 06:22] LABS: Basophils % (Auto) 0 % (0-2.5); Eosinophils # (Auto) 0.3 Thou/mm3 (0.0-0.5); Eosinophils % (Auto) 4 % (0-10); Hemoglobin 9.5 g/dL (12.0-16.0); Immature Granulocytes % (Auto) 4 % (0-0); Immature Granulocytes Auto 0.33 Thou/mm3 (0.00-0.00); Lymphocytes # (Auto) 2.7 Thou/mm3 (1.0-4.8); Lymphocytes % (Auto) 33 % (10-50); Mean Corpuscular HGB Conc 33.9 g/dl (31.0-37.0); Mean Corpuscular Hemoglobin 26.2 pg (25.0-35.0); Mean Corpuscular Volume 77 fL (80-100); Monocytes # (Auto) 0.7 Thou/mm3 (0.0-0.8); Monocytes % (Auto) 8 % (0-12); Neutrophils # (Auto) 4.3 Thou/mm3 (1.8-7.7); Neutrophils % (Auto) 51 % (37-80); Nucleated Red Blood Cell % 0 /100 WBC (0); Platelet Count 458 Thou/mm3 (140-440); RDW Standard Deviation 43.4 fL (36.4-46.3); Red Blood Count 3.62 Miln/mm3 (4.00-5.20); White Blood Count 8.4 Thou/mm3 (3.6-11.0)
[2025-02-06 07:03] LABS: Alanine Aminotransferase 20 U/L (10-49); Albumin, Serum 3.2 gm/dL (3.5-5.0); Albumin/Globulin Ratio 1.3 (1.2-2.2); Alkaline Phosphatase 146 U/L (46-116); Anion Gap 7 (7-16); Aspartate Amino Transferase 20 U/L (0-34); BUN/Creatinine Ratio 8 Ratio (12-20); Bilirubin,Total 0.4 mg/dL (0.3-1.2); Blood Urea Nitrogen 5 mg/dL (9-23); Calcium 7.9 mg/dL (8.3-10.6); Calcium (Corrected) 8.5 mg/dL (8.5-10.1); Carbon Dioxide 28.2 mMol/L (20.0-31.0); Chloride 105 mMol/L (98-107); Creatinine (Component) 0.6 mg/dL (0.6-1.3); Estimated Creatinine Clearance 132.3 mL/min (>60); Globulin 2.5 gm/dL (2.3-3.5); Glucose 91 mg/dL (74-106); Magnesium 1.9 mg/dL (1.6-2.6); Osmolality,Calculated 276 (275-295); Potassium 3.4 mMol/L (3.4-5.1); Sodium 140 mMol/L (136-145); Total Protein 5.7 gm/dL (5.7-8.2); eGFR > 60 See Note
[2025-02-06 08:00] VITALS: BP 131/86; PULSE 89; RESP 16; TEMP 37.1; O2SAT 95
[2025-02-06] MEDS: PANTOPRAZOLE INJ 40 MG VIAL IVP (09:11)
[2025-02-06] MEDS: DOCUSATE SOD 100 MG CAPSULE PO (09:12)
[2025-02-06] MEDS: HYDROcodone/APAP 5/325 TABLET 1 TAB PO (09:12)
--- NOTE | 2025-02-06 09:51 | PC.SS ---
Team A reported to SS that pt is ready for d/c. Pt will d/c with oral antibiotics.
--- NOTE | 2025-02-06 09:57 | PD.RESDS ---
Planned Discharge Date 02/06/25 DS: Providers Provider Date of admission: 02/02/25 17:48 Primary care physician: Physician No Primary/Family Admitting Provider: Stephane Santillan MD Attending Provider on Admission: Stephane Santillan MD Consults: 02/02/25 18:47 Consult to General Surgery Routine Comment: Consulting Provider: Matthieu Uriarte Attending Provider on DC: Stephane Santillan MD Discharging Provider: Stephane Santillan MD DS: Diagnosis Problem List Completed Was Problem List Reviewed/Reconciled?: Yes Hospital Course Hospital Course Hospital course: 44-year-old female with no relevant past medical history was admitted to the hospital on 02/02/2025 due to acute calculus cholecystitis. Patient had been complaining of right upper quadrant pain for 1 week prior to discharge and she had been to go to ED before, but was discharged with oral antibiotics. On this admission patient had a gallbladder ultrasound that did not show patient had acute calculus cholecystitis therefore general surgery was consulted. General surgery performed a successful cholecystectomy on 02/03/2025 and patient had been able to tolerate diet. Given the patient did have some purulent discharge from the gallbladder which could have been empyema of the gallbladder plan for general surgery wanted patient to get 48 hours of IV antibiotics after surgery. Patient had a bowel movement after surgery with no new complaints. At this time patient is stable enough to be discharged home. Discharge plan: Please follow-up with primary care physician within 1 week upon discharge Please follow-up with your general surgeon within 1 to 2 weeks after discharge Please keep surgical incision site clean and dry at all times. You have been started on ciprofloxacin 500 mg twice daily for a total of 7 days. Please continue taking all other home medications as prescribed. Please come back to the ED if symptoms persist or worsen creating worsening pain, fevers, or develop any rash or purulent discharge. Problem list: #Acute calculus cholecystitis #Mild microcytic normochromic anemia #Asymptomatic bacteriuria #Hypokalemia, resolved Case disclosed with Attending Dr. Jacque Young PGY1 Status at Discharge Overall status at discharge: patient is not back to baseline Time Spent with Patient Time attestation: Total time spent providing and/or coordinating discharge services:>35 min Time spent: Greater than 30 minutes Exam Vital Signs Temp Pulse Resp BP Pulse Ox O2 Del Method O2 Flow Rate 98.8 F 89 16 131/86 H 95 Room Air 2 02/06/25 08:00 02/06/25 08:00 02/06/25 08:00 02/06/25 08:00 02/06/25 08:00 02/06/25 08:00 02/03/25 20:00 Narrative Exam General: A/O x3, no acute distress, well-nourished, well-developed Eyes: PERRL, EOMI. Anicteric, vision grossly intact. Ears: No ear pain, no ear discharge, Hearing grossly intact. Nose: No nasal discharge. Mouth/Throat: Moist mucous membranes, no redness, no lesions. Neck: Neck supple, non-tender, no cervical lymphadenopathy. Lungs: Clear PATTY to auscultation and percussion, No accessory muscle use. Cardio: Normal S1/S2, regular rhythm, no murmurs, no JVD Abdomen: Soft, non tender, no palpable masses, peristalsis present, no guarding or rebound. Extremities: Symmetrical, no significant deformities, no peripheral edema , non-tender, peripheral pulses presents. Skin: No rashes, no lesions, warm to touch. Neuro: No focal neurological deficits. motor and sensory intact Psych: Cooperative, appropriate mood and effect. Discharge Plan Plan Patient Disposition: HOME (Self Care) Care Plan Goals: Please follow-up with primary care physician within 1 week upon discharge Please follow-up with your general surgeon within 1 to 2 weeks after discharge Please keep surgical incision site clean and dry at all times. You have been started on ciprofloxacin 500mg twice a day for 7 more days Please continue taking all other home medications as prescribed. Please come back to the ED if symptoms persist or worsen creating worsening pain, fevers, or develop any rash or purulent discharge. Prescriptions/Referrals Prescriptions/Med Rec: New ciprofloxacin HCl 500 mg tablet 500 mg PO BID 7 Days Qty: 14 0RF Continued Multivitamin with Minerals (Multiple Vitamin) 1 EACH tablet 1 ea PO QDAY Qty: 0 Hydrocodone/Acetaminophen * (NORCO 5/325 *) 1 TAB tablet 1 tab PO Q4H PRN (Reason: pain) Qty: 30 0RF pantoprazole [Protonix] 40 mg tablet,delayed release (DR/EC) 40 mg PO QDAY Qty: 20 0RF ibuprofen 800 mg tablet 800 mg PO Q8H PRN (Reason: pain) Qty: 30 0RF meloxicam 7.5 mg tablet 7.5 mg PO QDAY Qty: 10 0RF Discontinued amoxicillin-pot clavulanate 875-125 mg tablet 1 tab PO BID Qty: 14 0RF Referrals: Matthieu Uriarte MD [Physician] - No Primary/Family,Physician [Primary Care Provider] - Patient/Caregiver Discharge Instructions Other Discharge Activity Instructions:: Please follow-up with primary care physician within 1 week upon discharge Please follow-up with your general surgeon within 1 to 2 weeks after discharge Please keep surgical incision site clean and dry at all times. You have been started on ciprofloxacin 500mg twice a day for 7 more days Please continue taking all other home medications as prescribed. Please come back to the ED if symptoms persist or worsen creating worsening pain, fevers, or develop any rash or purulent discharge. Education Materials: Cholecystectomy, Discharge Instructions for ..., Preventing Surgical Site Infections Print Language: Setswana Activity Restrictions/Additional Instructions: May shower. Avoid lifting, straining, pulling or pushing for 4 weeks. May take over the counter laxatives if no bowel movement in 2 days. Follow up with Dr. Uriarte in 2 weeks, call [phone] for an appointment. Stand Alone Forms: Ana Award Info., Patient Portal Info Letter Discharge Order Discharge Orders: Discharge (Routine); Ordered 02/06/25 Ordered By: Robin Young Quality Discharge Quality Measures VTE prophylaxis Attestestation MD Attestation I reviewed labs, imaging, EKG, home medications and prior available records. Face to face evaluation was performed by me. I have personally examined the patient and discussed assessment and plan with the IM team. I reviewed the resident note and agree with the plan with exceptions as below. Sepsis secondary to acute cholecystitis versus acute UTI Acute cholecystitis Acute UTI Hypokalemia Consulted general surgery for cholecystectomy: Status post laparoscopic cholecystectomy on 02/03 Discussed with surgery: Recommended ciprofloxacin for 7 more days. Outpatient follow-up with surgery Management of pain/nausea as needed Trend WBC: Downtrending Follow-up blood and urine cultures: Negative to date Time spent is 35 minutes. More than 50% of the time was spent on patient education and coordination of care.
[2025-02-06 10:23] VITALS: PULSE 88; RESP 20; RESP 95
--- NOTE | 2025-02-06 10:27 | PD.SURPROG ---
Documentation for date of: 02/06/25 Subjective Subjective Narrative: Patient is seen and examined. She is feeling much better. She is tolerating diet and having bowel movements Exam Vital Signs Temp Pulse Resp BP Pulse Ox O2 Del Method O2 Flow Rate 98.8 F 88 20 131/86 H 95 Room Air 2 02/06/25 08:00 02/06/25 10:23 02/06/25 10:23 02/06/25 08:00 02/06/25 08:00 02/06/25 08:00 02/03/25 20:00 Constitutional Constitutional: no acute distress Routine Abdominal Exam Abdominal: Present soft, normoactive bowel sounds and tenderness (Minimal epigastric incisional tenderness. Incisions are clean, dry and intact); Absent distended Assessment & Plan Assessment Additional comments: Status post laparoscopic cholecystectomy Plan May discharge home today Procedures Procedures Laparoscopic cholecystectomy
[2025-02-06 12:00] VITALS: BP 137/87; PULSE 88; RESP 16; TEMP 36.2; O2SAT 97
== END 2025-02-06 13:28 | disposition home or self-care (01) | DRG 854 ==
LOC: SERX 17:56 → SERHOLD 18:06 → S3SX 21:23
PROVIDERS: Nurse Practitioner Family; Student in an Organized Health Care Education/Training Program; Surgery; Admitting Provider Student in an Organized Health Care Education/Training Program; Emergency Provider Emergency Medicine; Visit Provider Student in an Organized Health Care Education/Training Program
PROC: 0FT44ZZ Resection of Gallbladder, Percutaneous Endoscopic Approach (ICD-10-PCS; CPT 47562; principal; 2025-02-03 12:00)
DX: A41.9 Sepsis, unspecified organism (principal); K80.00 Calculus of gallbladder with acute cholecystitis without obstruction; N39.0 Urinary tract infection, site not specified; D50.9 Iron deficiency anemia, unspecified; I25.10 Atherosclerotic heart disease of native coronary artery without angina pectoris; E87.6 Hypokalemia; K21.9 Gastro-esophageal reflux disease without esophagitis; Z98.51 Tubal ligation status; Z79.899 Other long term (current) drug therapy
CPT/HCPCS: 36415; 76705; 80053; 81001; 81025; 83605; 83690; 83735; 84132; 84145; 85025; 85610; 85730; 87040; 87086; 87811; 94664; 96361; 96365; 96375; 99285; J0131; J1171; J1644; J2250; J2405; J2470; J2543; J2704; J3010; J3480; J3490; J7030; J7120; Q0162; A9270